=== PATIENT | male | born 1975 | race Caucasian/White ===

== ENCOUNTER 2016-10-21 14:00 | Emergency (ER) | payer SELFPAY ==
[2016-10-21 14:12] VITALS: BP 134/81
[2016-10-21] MEDS ORDERED: predniSONE TAB* 20 MG PO ONE (14:34)
--- NOTE | 2016-10-21 14:41 | UC ---
General HPI - HPI Summary HPI Summary: got his second Hep B vaccine 2d ago. Within 15 min of the vaccine, broke out in total body hives and had throat tightening. Symptoms improved over an hour, he went home. Gradually felt better, but next day he awoke with body aches particularly in the large joints, and fatigue. Now slightly improved, but was too tired to complete work day today. 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 Pain in large joints: knees, elbows, shoulders. No fever. No vomiting. No other concurrent illnesses - History of Current Complaint Chief Complaint: UCGeneralIllness Stated Complaint: POSSIBLE REACTION TO HEP B SHOT Time Seen by Provider: 10/21/16 14:06 Hx Obtained From: Patient Onset/Duration: Gradual Onset, Lasting Days - 2 Timing: Constant Onset Severity: Moderate Current Severity: Mild Associated Signs & Symptoms: Positive: Weakness Similar Episode/Dx as: no prior vaccine reactions, though mother told him he did have some sort of reaction to a vaccine when he was a baby - Allergy/Home Medications Allergies/Adverse Reactions: Allergies Allergy/AdvReac Type Severity Reaction Status Date / Time Penicillins Allergy Intermediate Hives Verified 10/21/16 14:06 Hepatitis B Virus Vaccine Allergy Hives Verified 10/21/16 14:06 PMH/Surg Hx/FS Hx/Imm Hx Previously Healthy: Yes Respiratory History Of: Denies: Asthma - Surgical History Surgical History: Yes Surgery Procedure, Year, and Place: appy. undesended testicle - Family History Known Family History: Positive: Hypertension - Social History Occupation: Employed Full-time Lives: With Family Alcohol Use: Weekly Alcohol Amount: couple beers a night Substance Use Type: None Smoking Status (MU): Former Smoker When Did the Patient Quit Smoking/Using Tobacco: 2009 Review of Systems Constitutional: Fatigue - marked today Skin: Other - hives Eyes: Negative ENT: Negative Respiratory: Negative Cardiovascular: Negative Gastrointestinal: Negative Genitourinary: Negative Motor: Negative Neurovascular: Negative Musculoskeletal: Arthralgia Neurological: Negative Psychological: Negative All Other Systems Reviewed And Are Negative: Yes Physical Exam Triage Information Reviewed: Yes Appearance: Well-Appearing, No Pain Distress, Well-Nourished, Obese Vital Signs: Initial Vital Signs Temp 99.3 F 10/21/16 14:07 Pulse 88 10/21/16 14:07 Resp 20 10/21/16 14:07 BP 134/81 10/21/16 14:07 Pulse Ox 100 10/21/16 14:07 Vital Signs Reviewed: Yes Eye Exam: Normal Eyes: Positive: Conjunctiva Clear ENT Exam: Normal Neck exam: Normal Neck: Positive: Supple Respiratory Exam: Normal Respiratory: Positive: Lungs clear Cardiovascular Exam: Normal Musculoskeletal Exam: Normal, Other - he states joints are painful to move. No redness or evident swelling Neurological Exam: Normal Neurological: Positive: Alert, Muscle Tone Normal Psychological Exam: Normal Skin Exam: Normal Course/Dx - Course Course Of Treatment: advised not to get 3rd Hep B vaccination - Differential Dx - Multi-Symptom Provider Diagnoses: adverse reaction to vaccine Discharge - Discharge Plan Condition: Stable Disposition: HOME Patient Education Materials: General Allergic Reaction (ED) Forms: *Work Release Referrals: No Primary Care Phys,NOPCP [Primary Care Provider] - Additional Instructions: Rest at home. Starting Oct, take ibuprofen 600-800 mg (3 or 4 tabs) three times a day for joint aching
== END 2016-10-21 14:49 | disposition home or self-care (01) ==
LOC: UCCORT 14:00
DX: T88.1XXA Other complications following immunization, not elsewhere classified, initial encounter (principal); L27.0 Generalized skin eruption due to drugs and medicaments taken internally; T50.Z95A Adverse effect of other vaccines and biological substances, initial encounter; Y92.9 Unspecified place or not applicable; Z88.0 Allergy status to penicillin; Z87.891 Personal history of nicotine dependence
CPT/HCPCS: 99212; G0463; J7512

== ENCOUNTER 2016-12-22 11:48 | Emergency (ER) | payer BC ==
[2016-12-22 12:00] VITALS: BP 151/81
--- NOTE | 2016-12-22 13:26 | UC ---
desmond Tyson Timothy, scribed for Jesus Cain MD on 12/22/16 at 1223 . FLU HPI - HPI Summary HPI Summary: Maikol Staton is a 41 yo male presenting to [facility] with cough, nasal congestion, and 3/10 sore throat for the past week. Pt states he was exposed to a person's vomit who had influenza b. He states he had a bad chest cold over a week ago. He denies fever. His MHx includes HTN, appendectomy. - History of Current Complaint Chief Complaint: UCRespiratory Stated Complaint: FLU SYMPTOMS Time Seen by Provider: 12/22/16 12:17 Hx Obtained From: Patient Onset/Duration: Gradual Onset, Lasting Days, Still Present Severity Currently: Moderate Severity Initially: Moderate Pain Intensity: 3 Pain Scale Used: 0-10 Numeric Associated Signs & Symptoms: Positive: Cough, Sore Throat, Nasal Congestion. Negative: Fever - Allergy/Home Medications Allergies/Adverse Reactions: Allergies Allergy/AdvReac Type Severity Reaction Status Date / Time Penicillins Allergy Intermediate Hives Verified 10/21/16 14:06 Hepatitis B Virus Vaccine Allergy Hives Verified 10/21/16 14:06 PMH/Surg Hx/FS Hx/Imm Hx Respiratory History Of: Denies: Asthma - Surgical History Surgical History: Yes Surgery Procedure, Year, and Place: appy. undesended testicle - Family History Known Family History: Positive: Hypertension, Diabetes, Other - [place] - Social History Alcohol Use: Weekly Alcohol Amount: couple beers a night Substance Use Type: None Smoking Status (MU): Former Smoker When Did the Patient Quit Smoking/Using Tobacco: 2008 Review of Systems Constitutional: Negative Skin: Negative Eyes: Negative ENT: Sore Throat, Nasal Discharge Respiratory: Cough Cardiovascular: Negative Gastrointestinal: Negative Genitourinary: Negative Motor: Negative Neurovascular: Negative Musculoskeletal: Negative Neurological: Negative Psychological: Negative All Other Systems Reviewed And Are Negative: Yes Physical Exam Triage Information Reviewed: Yes Vital Signs: Initial Vital Signs Temp 98.2 F 12/22/16 11:57 Pulse 110 12/22/16 11:57 Resp 20 12/22/16 11:57 BP 151/81 12/22/16 11:57 Pulse Ox 100 12/22/16 11:57 Vital Signs Reviewed: Yes - Additional Comments VITAL SIGNS: Reviewed. GENERAL: Patient is a well developed and nourished who is lying comfortable in the stretcher. Patient is not in any acute respiratory distress. HEAD AND FACE: Normocephalic. Nasal discharge. EYES: PERRLA, EOMI x 2. EARS: Hearing grossly intact. MOUTH: pharyngeal erythema NECK: Supple, trachea is midline, no adenopathy, no JVD, no carotid bruit. CHEST: Symmetric, no tenderness at palpation LUNGS: Clear to auscultation bilaterally. No wheezing or crackles. CVS: Regular rate and rhythm, S1 and S2 present, no murmurs or gallops appreciated. ABDOMEN: Soft, non-tender. Bowel sounds are normal. No abdominal abnormal pulsations. EXTREMITIES: FROM in all major joints, no edema, no cyanosis or clubbing. NEURO: Alert and oriented x 3. No acute neurological deficits. Speech is normal and follows commands. SKIN: Dry and warm Re-Evaluation - Re-Evaluation First Eval Re-Evaluation Time: 13:20 Change: Unchanged Comment: Pt is informed of negative results of flu and strep tests. He is agreeable to current course of Tx. Flu Course/Dx - Course Course Of Treatment: Maikol Staton is a 41 yo male presenting to [facility] with cough, nasal congestion, and 3/10 sore throat for the past week. Pt states he was exposed to a person's vomit who had influenza b. He states he had a bad chest cold over a week ago. He denies fever. His MHx includes HTN, appendectomy. Negative rapid strep test. Negative influenza A and B test. I discussed all the findings and test results with the patient. Patient was instructed to return to the emergency room immediately if any of the symptoms return or worsens. Plan of care was discussed with the patient and understands and agrees. All questions were answered at patient satisfaction. There were no further complaints or concerns. Lung exam before discharge: CTA B/L. Good air exchange. No wheezing or crackles heard. CVS: S1 and S2 present. No murmurs appreciated. Patient is alert and oriented x 3. Patient is hemodynamically stable. Patient will be discharged home with follow up information assurance in the next 2-3 days - Differential Dx/Diagnosis Differential Diagnosis/HQI/PQRI: Bronchitis, Influenza, Upper Respiratory Infection Provider Diagnoses: cough, URI Discharge - Discharge Plan Condition: Stable Disposition: HOME Prescriptions: Benzonatate CAP* [Tessalon 100 MG CAP*] 100 mg PO TID PRN #12 cap PRN Reason: Cough Patient Education Materials: Acute Cough (ED), Upper Respiratory Infection (ED) Forms: *Work Release Referrals: No Primary Care Phys,NOPCP [Primary Care Provider] - [facility] [Outside] - 2 Days Additional Instructions: Please follow up with the primary care physician provided regarding your visit to urgent care today. Return to urgent care or the emergency department with any new or recurring symptoms. The documentation as recorded by the desmond mann Timothy accurately reflects the service I personally performed and the decisions made by me, Jesus Cain MD.
== END 2016-12-22 13:31 | disposition home or self-care (01) ==
LOC: UCEAST 11:48
DX: J06.9 Acute upper respiratory infection, unspecified (principal); R05 Cough; Z88.0 Allergy status to penicillin; Z88.7 Allergy status to serum and vaccine; Z87.891 Personal history of nicotine dependence
CPT/HCPCS: 87502; 87651; 99212; G0463

== ENCOUNTER 2017-04-27 07:08 | Emergency (ER) | payer BC ==
[2017-04-27 07:29] VITALS: BP 151/76
--- NOTE | 2017-04-27 07:57 | UC ---
Dental HPI - HPI Summary HPI Summary: left lower jaw pain from dental decay. he has recently gotten dental insurance and has a list of dentists that he will go through to find one. No fevers or chills. - History of Current Complaint Chief Complaint: UCDentalProblem Stated Complaint: DENTAL Time Seen by Provider: 04/27/17 07:14 Hx Obtained From: Patient Onset/Duration: Gradual Onset Severity: Severe Aggravating: Heat, Cold, Chewing Alleviating: Nothing Related History: Previous Dental Care on Same Tooth, Swelling - Allergies/Home Medications Allergies/Adverse Reactions: Allergies Allergy/AdvReac Type Severity Reaction Status Date / Time Penicillins Allergy Intermediate Hives Verified 04/27/17 07:20 Hepatitis B Virus Vaccine Allergy Hives Verified 04/27/17 07:20 Home Medications: Home Medications Acetaminophen TAB* [Tylenol TAB*] 1,000 mg PRN 04/27/17 [History] PMH/Surg Hx/FS Hx/Imm Hx Previously Healthy: No - prior dental decay and cavities. - Surgical History Surgical History: Yes Surgery Procedure, Year, and Place: appy. undesended testicle - Family History Known Family History: Positive: Hypertension, Diabetes, Other - [place] - Social History Occupation: Employed Full-time Alcohol Use: Weekly Alcohol Amount: [id number] Substance Use Type: None Smoking Status (MU): Former Smoker When Did the Patient Quit Smoking/Using Tobacco: 2008 - Immunization History Most Recent Influenza Vaccination: NONE 2015 Most Recent Tetanus Shot: UNKNOWN Review of Systems ENT: Dental Pain All Other Systems Reviewed And Are Negative: Yes Physical Exam Triage Information Reviewed: Yes Appearance: Pain Distress, Obese Vital Signs: Initial Vital Signs Temp 98.3 F 04/27/17 07:20 Pulse 111 04/27/17 07:20 Resp 18 04/27/17 07:20 BP 151/76 04/27/17 07:20 Pulse Ox 99 04/27/17 07:20 Vital Signs Reviewed: Yes Eye Exam: Normal ENT Exam: Normal Dental: Positive: Percussion Tenderness @, Gross Decay/Caries @. Negative: Abscess @, Cellulitis @, Cervical Lymphadenopathy, Bleeding Neck exam: Normal Neck: Positive: Supple, Nontender, No Lymphadenopathy Respiratory Exam: Normal Cardiovascular Exam: Normal Abdominal Exam: Normal Musculoskeletal Exam: Normal Neurological Exam: Normal Psychological Exam: Normal Skin Exam: Normal Dental Complaint Course/Dx - Course Course Of Treatment: no signs of dental abcess but there is gross decay and carries of the left lower molars and incisors. no signs of cellulitis. 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 Discharge - Discharge Plan Condition: Good Disposition: HOME Prescriptions: Clindamycin CAP* [Cleocin 150 MG CAP*] 300 mg PO Q6H #40 cap HYDROcodone/ACETAMIN 5-325 MG* [[place] 5-325 TAB*] 1 tab PO Q6H PRN #16 tab MDD 4 PRN Reason: Pain Ibuprofen TAB* [Motrin TAB* 800 MG] 800 mg PO TID PRN #20 tab PRN Reason: Pain Additional Instructions: Please follow up with a dentist. Return for any worsening.
--- NOTE | 2017-04-27 16:38 | ED ---
Progress - Progress Note Progress Note: Oked an additional 40 capsules of clindamycin 150 mg to equal 300 mg q6h for 10 days. Course/Dx - Course Course Of Treatment: no signs of dental abcess but there is gross decay and carries of the left lower molars and incisors. no signs of cellulitis. - Diagnoses Provider Diagnoses: Dental abscess
== END 2017-04-27 08:17 | disposition home or self-care (01) ==
LOC: UCCORT 07:08
DX: K02.9 Dental caries, unspecified (principal); Z87.891 Personal history of nicotine dependence
CPT/HCPCS: 99212; G0463

== ENCOUNTER 2017-11-30 07:39 | Inpatient (IN) | payer BC ==
--- NOTE | 2017-11-30 08:29 | RAD ---
HISTORY: Chest pain COMPARISONS: March 11, 2015 VIEWS: 1: frontal portable view of the chest at 8:10 AM FINDINGS: LINES AND TUBES: None. CARDIOMEDIASTINAL SILHOUETTE: The cardiomediastinal silhouette is normal for portable technique. PLEURA: The costophrenic angles are sharp. No pleural abnormalities are noted. LUNG PARENCHYMA: The lungs are clear. ABDOMEN: The upper abdomen is clear. There is no subphrenic gas. BONES AND SOFT TISSUES: No bone or soft tissue abnormalities are noted. IMPRESSION: NO ACTIVE CARDIOPULMONARY DISEASE.
[2017-11-30] MEDS ORDERED: NS 0.9% 1000 ML* 1,000 ML IV ONE (08:50)
[2017-11-30 08:52] LABS: ABS Basophils 0.1 10^3/ul (0-0.2); ABS Eosinophils 0.8 10^3/ul (0-0.6); ABS Lymphocytes 2.4 10^3/ul (1.0-4.8); ABS Monocytes 0.6 10^3/ul (0-0.8); ABS Nucleated RBC 0 10^3/ul; Eosinophil % 5.3 % (0-6); Hematocrit 51 % (42-52); Hemoglobin 16.8 g/dl (14.0-18.0); Lymphocyte % 16.4 % (25-47); Mean Corpuscular HGB Conc 33 g/dl (31-36); Mean Corpuscular Hemoglobin 29 pg (27-31); Mean Corpuscular Volume 89 fL (80-94); Mean Platelet Volume 8 um3 (7.4-10.4); Nucleated Red Blood Cells % 0.2; Platelet Count 213 10^3/ul (150-450); Red Blood Count 5.71 10^6/ul (4.0-5.4); Red Cell Distribution Width 15 % (10.5-15); White Blood Count 14.8 10^3/ul (3.5-10.8)
[2017-11-30 09:00] LABS: INR 0.97 (0.77-1.02)
[2017-11-30] MEDS ORDERED: Iohexol 350* (CONTRAST) 500 ML MDV IV ONE (10:01)
[2017-11-30] MEDS ORDERED: Perflutren Lipid Microsphere* 3 ML VIAL ONE (10:22)
--- NOTE | 2017-11-30 10:29 | RAD ---
HISTORY: Chest pain COMPARISONS: None TECHNIQUE: Multiple contiguous axial CT scans of the chest were obtained after the administration of nonionic intravenous contrast, timed to the pulmonary arterial phase of contrast enhancement.. Coronal and sagittal multiplanar reformations are also submitted for review. FINDINGS: NECK AND THYROID: The lower neck and thyroid are unremarkable. CHEST WALL: There is no lower cervical, axillary, or supraclavicular lymphadenopathy by size criteria. HEART AND PERICARDIUM: The heart is unremarkable. AORTA AND PULMONARY VASCULATURE: There are large bilateral filling defects consistent with saddle pulmonary emboli within the main pulmonary artery and lower and segmental branches bilaterally. MEDIASTINUM: There is no mediastinal lymphadenopathy by size criteria. HUMBERTO: There is no hilar lymphadenopathy by size criteria. AIRWAY AND ESOPHAGUS: The airway is unremarkable, without endobronchial filling defect. The esophagus is grossly normal. LUNG PARENCHYMA: The lungs are clear. PLEURA: There is moderate right pleural effusion UPPER ABDOMEN: The upper abdomen is unremarkable. BONES AND SOFT TISSUES: Degenerative changes are noted OTHER: None. IMPRESSION: 1. LARGE BILATERAL PULMONARY EMBOLI. 2. RIGHT PLEURAL EFFUSION. PRELIMINARY FINDINGS WERE DISCUSSED WITH DR. BROWER IN THE EMERGENCY DEPARTMENT AT APPROXIMATELY 10:25 AM ON NOVEMBER 30, 2017.
[2017-11-30] MEDS ORDERED: Heparin DRIP 25,000 UNITS(*) 25,000 UNITS/500 ML BAG IVPB SCH ×2 (11:45→17:30)
[2017-11-30] MEDS ORDERED: Heparin VIAL(*) 5000 UNITS/ML VIAL (FIVE THOUSAND) IV SCH ×2 (12:00→18:00)
[2017-11-30] MEDS ORDERED: Acetaminophen TAB* 325 MG PO PRN (12:11)
[2017-11-30] MEDS ORDERED: Ondansetron INJ* 2 MG/ML VIAL IV PRN (12:11)
[2017-11-30] MEDS ORDERED: NS 0.9% 1000 ML* 1,000 ML IV SCH (12:15)
--- NOTE | 2017-11-30 12:23 | ECHO ---
Patient: MILAN BEDOYA [facility] Rec#: [id number] : 1975 Date: 11/30/2017 Age: 42y Height: 182.88 cm / 72.0 in Weight: 136.08 kg / 299.9 lbs Sex: M BSA: 2.53 Room#: ED 12 Admit Date#: 11/30/2017 Type: Inpatient Referring: Ghada Alvarenga MD Reading: Ghada Alvarenga MD Cancer Genetic Counselor: Bebe MartinRD,RDMS Transthoracic Echocardiogram Indication: SOB, CP BP: 101/66 HR: 116 Rhythm: Tachycardia Findings History: Smoker. On CT large bilateral pulmonary emboli. Technical Comments: The study is technically limited due to patient body habitus. Left Ventricle: The left ventricular chamber size is normal. Mild concentric left ventricular hypertrophy is observed. Global left ventricular wall motion and contractility are within normal limits. The left ventricle appears hyperdynamic. The estimated ejection fraction is 60-65%. There is septal flattening of the interventricular septum consistent with right ventricular volume or pressure overload. There is an E to A reversal in the mitral valve flow pattern suggestive of diastolic dysfunction. Left Atrium: The left atrium is slightly dilated. Right Ventricle: The right ventricle is mildly dilated. The right ventricular global systolic function is severely reduced. Right Atrium: The right atrium is mildly dilated. Aortic Valve: There is no evidence of aortic valve thickening. Systolic excursion of the aortic valve is normal. There is no evidence of aortic regurgitation. There is no evidence of aortic stenosis. Mitral Valve: The mitral valve leaflets do not appear thickened. There is no evidence of mitral regurgitation. There is no evidence of mitral stenosis. Tricuspid Valve: The tricuspid valve leaflets are normal. There is trace tricuspid regurgitation. Unable to estimate the right ventricular systolic pressure. Pulmonic Valve: There is no evidence of pulmonic valve thickening. There is no evidence of pulmonic regurgitation. Pericardium: A trivial pericardial effusion is visualized. Aorta: The aortic root appears normal. There is no dilatation of the aortic arch. Pulmonary Artery: The main pulmonary artery appears normal. Venous: The inferior vena cava is dilated. There is no change in the dimension of the inferior vena cava with respiration consistent with markedly increased right atrial pressure. Contrast: Definity was used to optimize study. A total of 10 ml was given by ED RN (Macario). Patient tolerated well. Conclusions Mild concentric left ventricular hypertrophy is observed. Normal to hyperdynamic LV systolic function with normal wall motion. The estimated ejection fraction is 60-65%. There is septal flattening of the interventricular septum consistent with right ventricular volume or pressure overload. There is an E to A reversal in the mitral valve flow pattern suggestive of diastolic dysfunction. The right ventricular global systolic function is severely reduced and RV dilatation is noted. All valves appear stucturally normal with normal function. There is trace tricuspid regurgitation. Unable to estimate the right ventricular systolic pressure. No prior echo to compare. Measurements Name Value Normal Range RVIDd (AP) 2D 3.9 cm (0.9 - 2.6) RVDdMajor (2D) 4.1 cm (2.2 - 4.4) RAd ISD 4CH 5.3 cm (3.4 - 4.9) RA (A4C)W 3.6 cm (2.9 - 4.6) IVSd (2D) 1.2 cm (0.6 - 1) LVPWd (2D) 1.4 cm (0.6 - 1) LVIDd (2D) 4.5 cm (3.6 - 5.4) LVIDs (2D) 3 cm - LV FS (2D) 32 % (25 - 45) Aortic Annulus 2.2 cm (1.4 - 2.6) Ao root diameter (2D) 3.4 cm (2.1 - 3.5) Ascending Ao 3.1 cm (2.1 - 3.4) Aortic arch 3.3 cm (1.8 - 3.4) LA dimension (AP) 2D 3.5 cm (2.3 - 3.8) LAd ISD 4CH 5.5 cm (2.9 - 5.3) LA ISD 4CH W 3.8 cm (2.5 - 4.5) Name Value Normal Range LA ESV SP 4CH (A/L) 54.31 ml - LA ESV SP 4CH (MOD) 48.72 ml - Name Value Normal Range MV E-wave Vmax 0.4 m/sec - MV deceleration time 50 msec - MV A-wave Vmax 0.6 m/sec - MV E:A ratio 0.7 ratio - LV lateral e' Vmax 0.08 m/sec - LV E:e' lateral ratio 5 ratio - Name Value Normal Range AV Vmax 1 m/sec - AV peak gradient 4 mmHg - LVOT Vmax 0.7 m/sec - LVOT peak gradient 2 mmHg - Name Value Normal Range RAP 8 mmHg - IVC diameter 2.2 cm - Name Value Normal Range PV Vmax 0.6 m/sec - PV peak gradient 1.4 mmHg -
[2017-11-30 13:36] LABS: EGFR Non-African American 78.7 (>60)
[2017-11-30] MEDS ORDERED: Alteplase* 100 MG in PREMIX* 100 ML IVPB ONE (14:30)
[2017-11-30] MEDS ORDERED: Alteplase* 100 MG VIAL ONE (14:31)
--- NOTE | 2017-11-30 14:43 | PN ---
Progress Note - Progress Note Date of Service: 11/30/17 Note: CRITICAL CARE ATTENDING: This patient is a 42 y/o obese male with no significant past medical history, who was admitted this afternoon because of multiple pulmonary emboli associated with right heart strain (by transthoracic echocardiogram). The latter finding is considered by many (including myself) to be an indication for thrombolytic therapy. Since patient has no contraindications to lytic therapy, I have explained the benefits and risks of lytic Rx to the patient and his sister (who is a nurse), and they have agreed to the Rx. Will therefore administer alteplase , 100 mg over 2 hours. Patient is on a heparin drip, which will be held while the alteplase is infused.
[2017-11-30 15:08] LABS: ABS Basophils 0.1 10^3/ul (0-0.2); ABS Eosinophils 0.4 10^3/ul (0-0.6); ABS Lymphocytes 2.7 10^3/ul (1.0-4.8); ABS Monocytes 0.9 10^3/ul (0-0.8); ABS Neutrophils 9.5 10^3/ul (1.5-7.7); ABS Nucleated RBC 0 10^3/ul; Eosinophil % 2.8 % (0-6); Hematocrit 48 % (42-52); Hemoglobin 15.9 g/dl (14.0-18.0); Lymphocyte % 19.8 % (25-47); Mean Corpuscular HGB Conc 33 g/dl (31-36); Mean Corpuscular Hemoglobin 30 pg (27-31); Mean Corpuscular Volume 89 fL (80-94); Mean Platelet Volume 8 um3 (7.4-10.4); Nucleated Red Blood Cells % 0; Platelet Count 226 10^3/ul (150-450); Red Blood Count 5.39 10^6/ul (4.0-5.4); Red Cell Distribution Width 15 % (10.5-15); White Blood Count 13.7 10^3/ul (3.5-10.8)
[2017-11-30 15:50] LABS: EGFR Non-African American 81.4 (>60)
[2017-11-30 16:05] LABS: INR 1.08 (0.77-1.02)
[2017-11-30] MEDS: Heparin DRIP 25,000 UNITS(*) 25,000 UNITS/500 ML BAG IVPB SCH (17:31)
--- NOTE | 2017-11-30 18:21 | ED ---
Christian Tyson Jennifer, scribed for Jose Molina MD on 11/30/17 at 0908 . HPI Chest Pain - HPI Summary HPI Summary: The patient is a 42 year old male who was brought into the ED for chest pressure and shortness of breath this morning. Pt explains two nights ago he got shortness of breath, which went away the next day. This morning, he bent down to feed his cats and began breathing heavily. He called 911 but fainted before ambulance arrived. He came to as his mother called 911 again. Pt was given Aspirin and NTG in the ambulance, and now reports only a little bit of pressure in the ED now. Pt reports exertion, movement, and walking aggravate the pain. He also adds that he had bronchitis one month ago and has had a persistent cough since. - History of Current Complaint Chief Complaint: EDChestPainROMI Time Seen by Provider: 11/30/17 07:56 Hx Obtained From: Patient Onset/Duration: Started Minutes Ago - This morning, Still Present - Better in ED Timing: Intermittent Initial Severity: Moderate Current Severity: Mild Pain Intensity: 0 Pain Scale Used: 0-10 Numeric Chest Pain Location: Diffuse, Mid Sternal Chest Pain Radiates: No Character: Pressure/Squeezing Aggravating Factor(s): Exertion, Movement - Walking Alleviating Factor(s): Rest Associated Signs and Symptoms: Positive: Other: - Shortness of breath, syncope, cough - Allergy/Home Medications Allergies/Adverse Reactions: Allergies Allergy/AdvReac Type Severity Reaction Status Date / Time hepatitis B virus vaccine Allergy Hives Verified 11/30/17 07:57 Penicillins Allergy Hives Verified 11/30/17 07:57 Home Medications: Home Medications NK [No Home Medications Reported] 11/30/17 [History Confirmed 11/30/17] PMH/Surg Hx/FS Hx/Imm Hx Endocrine/Hematology History: Denies: Hx Diabetes Cardiovascular History: Denies: Hx Hypertension Respiratory History: Denies: Hx Asthma Sensory History: Denies: Hx Legally Blind EENT History: Denies: Hx Deafness - Surgical History Surgery Procedure, Year, and Place: appy. undesended testicle Infectious Disease History: No Infectious Disease History: Denies: Traveled Outside the [place] in Last 30 Days - Family History Known Family History: Positive: Cardiac Disease - Father, Hypertension, Diabetes , Other - Father of brain CA; Aortic Aneurysm - paternal aunt and uncle - Social History Alcohol Use: None Alcohol Amount: couple beers a night Substance Use Type: Reports: None Smoking Status (MU): Former Smoker Review of Systems Positive: Chest Pain Positive: Shortness Of Breath, Cough All Other Systems Reviewed And Are Negative: Yes Physical Exam - Summary Physical Exam Summary: Appearance: The patient is morbidly obese in no acute distress and in no acute pain. Skin: The skin is warm and dry and skin color reflects adequate perfusion. HEENT: ~The head is normocephalic and atraumatic. The pupils are equal and reactive. The conjunctivae are clear and without drainage. ~Nares are patent and without drainage. ~Mouth reveals moist mucous membranes and the throat is without erythema and exudate. ~The external ears are intact. The ear canals are patent and without drainage. The tympanic membranes are intact. Neck: the neck is supple with full range of motion and non-tender. There are no carotid bruits. ~There is no neck vein distension. Respiratory: Chest is non-tender. ~Lungs are clear to auscultation and breath sounds are symmetrical and equal. Cardiovascular: Heart is tachycardic and regular rhythm. ~There is no murmur or rub auscultated. ~~There is no peripheral edema and pulses are symmetrical and equal. Abdomen: The abdomen is soft and non-tender. ~There are normal bowel sounds heard in all four quadrants and there is no organomegaly palpated. Musculoskeletal: There is no back tenderness noted. ~Extremities are non-tender with full range of motion. ~There is good capillary refill. ~There is no peripheral edema or calf tenderness elicited. Neurological: Patient is alert and oriented to person, place and time. ~The patient has symmetrical motor strength in all four extremities. ~Cranial nerves are grossly intact. Deep tendon reflexes are symmetrical and equal in all four extremities. Psychiatric: The patient has an appropriate affect and does not exhibit any anxiety or depression. Triage Information Reviewed: Yes Vital Signs On Initial Exam: Initial Vitals Temp Pulse Resp BP Pulse Ox 98.7 F 116 22 110/64 98 11/30/17 07:44 11/30/17 07:44 11/30/17 07:44 11/30/17 07:44 11/30/17 07:44 Vital Signs Reviewed: Yes Diagnostics - Vital Signs Vital Signs Temp Pulse Resp BP Pulse Ox 11/30/17 08:36 117 19 113/82 99 11/30/17 08:00 121 20 119/73 98 11/30/17 07:55 116 15 98 11/30/17 07:54 133/69 11/30/17 07:44 98.7 F 116 22 110/64 98 - Laboratory Lab Results: Lab Results 11/30/17 Range/Units 08:33 WBC 14.8 H (3.5-10.8) 10^3/ul RBC 5.71 H (4.0-5.4) 10^6/ul Hgb 16.8 (14.0-18.0) g/dl Hct 51 (42-52) % MCV 89 (80-94) fL MCH 29 (27-31) pg MCHC 33 (31-36) g/dl RDW 15 (10.5-15) % Plt Count 213 (150-450) 10^3/ul MPV 8 (7.4-10.4) um3 Neut % (Auto) 74.0 (38-83) % Lymph % (Auto) 16.4 L (25-47) % [place] % (Auto) 3.8 (0-7) % Eos % (Auto) 5.3 (0-6) % Baso % (Auto) 0.5 (0-2) % Absolute Neuts (auto) 11.0 H (1.5-7.7) 10^3/ul Absolute Lymphs (auto) 2.4 (1.0-4.8) 10^3/ul Absolute Monos (auto) 0.6 (0-0.8) 10^3/ul Absolute Eos (auto) 0.8 H (0-0.6) 10^3/ul Absolute Basos (auto) 0.1 (0-0.2) 10^3/ul Absolute Nucleated RBC 0 10^3/ul Nucleated RBC % 0.2 Result Diagrams: 11/30/17 15:00 11/30/17 15:00 Lab Statement: Any lab studies that have been ordered have been reviewed, and results considered in the medical decision making process. - Radiology CXR Xray Interpretation: No Acute Changes - NO ACTIVE CARDIOPULMONARY DISEASE. Dr. Molina has reviewed this report. Radiology Interpretation Completed By: Radiologist - CT Chest/Thorax CTA CT Interpretation: Positive (See Comments) - 1. LARGE BILATERAL PULMONARY EMBOLI. 2. RIGHT PLEURAL EFFUSION. Dr. Molina has reviewed this report. CT Interpretation Completed By: Radiologist - EKG 07:44 Cardiac Rate: Tachycardia EKG Rhythm: Sinus Tachycardia - 115 BPM EKG Interpretation: Deep inverted T waves septally, mild ST depressions anteriorly Chest Pain Course/Dx - Course Course Of Treatment: Mr. Staton presented with CP and SOB and was clearly tachypneic and tachycardic but relatively asymptomatic at rest on O2. His initial ECG showed ischemic changes septally and anteriorly. His intial trop was 0.36 and his d-dimer greater than 1 thousand. CTA showed bilateral saddle emboli and he is getting an echo and admitted to the ICU for consideration of thrombolitics. - Diagnoses Provider Diagnoses: Pulmonary embolism - Provider Notifications Discussed Care Of Patient With: Ghada Alvarenga Time Discussed With Above Provider: 09:45 Instructed by Provider To: Other - Discussed pt care with Dr. Alvarenga, cardiology. Also, discussed pt care with Dr. Denney, hospitalist, at 10:38. - Critical Care Time Critical Care Time: 30-74 min Discharge - Discharge Plan Condition: Good Disposition: ADMITTED TO [facility] documentation as recorded by the Christian mann Jennifer accurately reflects the service I personally performed and the decisions made by , Jose Molina MD.
--- NOTE | 2017-11-30 20:41 | RAD ---
INDICATION: Pain and swelling. COMPARISON: None TECHNIQUE: Duplex interrogation of the both lower extremities was performed. FINDINGS: Deep veins: The common femoral, great saphenous, profunda femoris, proximal, mid, and distal deep femoral, popliteal, posterior tibial, and peroneal veins are interrogated. The tibial veins are not well evaluated due to body habitus and therefore tibial deep venous thrombosis cannot be excluded. There is no evidence of [id number] deep venous thrombosis and the remaining vessels demonstrate normal compressibility, augmentation, and phasic flow. Superficial veins: There are no findings of superficial thrombophlebitis. Popliteal fossa:There is no evidence of a popliteal cyst. Soft tissues:There are no soft tissue abnormalities. IMPRESSION: LIMITED EXAMINATION TIBIAL VESSELS. NO EVIDENCE OF DEEP VENOUS THROMBOSIS ABOVE THE KNEE.
--- NOTE | 2017-11-30 20:50 | HP ---
ADMISSION HISTORY AND PHYSICAL: DATE OF ADMISSION: 11/30/17 PRIMARY CARE PROVIDER: None. MY ATTENDING WHILE IN THE HOSPITAL: Dr. Nara Denney.* (DICTATED BY DANA CHRISTIANSON) CHIEF COMPLAINT: Shortness of breath and chest pressure x2 days. HISTORY OF PRESENT ILLNESS: Mr. Staton is a 42-year-old male, who does not routinely seek medical care and has a past medical history significant only for intermittent hypertension for which he takes no medication, who presents with 2 days of shortness of breath and chest pressure. The patient states that a couple of nights ago suddenly when he was leaning over to change the cat litter box, he had shortness of breath to the point that he was not able to catch his breath for after taking a few steps. The patient states that he normally has no real restrictions on his exercise tolerance. Denies progressive dyspnea on exertion, increased swelling of his legs, fatigue, or other abnormalities. The patient states that he had bronchitis at the end of last year and still has intermittently productive cough from that, so he attributed this to that. However, the patient states that he felt tired yesterday with shortness of breath, but was able to function. The patient then states today that he was leaning down to pick something up the floor and felt as if he was going to pass out and got extremely short of breath. The patient was able to make it to the other room to call 911. The patient states that with this episode, he had some chest tightness, like the muscles in his chest were spasming, but no stabbing, no discrete chest pain. The patient was able to call 911, got up to unlock the door for the patternator. He was able to walk there and several steps back before he blacked out and woke up on the floor. The patient was then brought to the hospital. The patient denies any recent changes in his routine diet or any long trips. 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 The patient states that he has chronic swelling in his left leg with some darkening of the skin for which he previously went to Urgent Care and they said that he did not have a blood clot in his leg and that it was equally swollen to the other side. The patient denies any episodes like this. The patient denies any other symptoms such as fever, chills, nausea, vomiting. The patient states that his father while he had brain cancer had a blood clot and had a hypercoagulable workup drawn, which showed that he had heritable thrombophilia, but is unknown what type it is. The patient's sister who is present also states that she had a provoked DVT in her left arm after a clavicle fracture that she also had a hypercoagulable workup drawn that the results are unknown for. The patient also had an aunt, who had a DVT and of unknown complications from that, presumably of PE. The patient had CTA while in the emergency department, which showed bilateral large pulmonary emboli, and so we were asked to evaluate for admission. PAST MEDICAL HISTORY: Hypertension, on no medication; dental abscesses. PAST SURGICAL HISTORY: Appendectomy, orchiopexy as a child. MEDICATIONS: None. ALLERGIES: PENICILLIN, anaphylactic. FAMILY HISTORY: The patient's father had brain tumor, pulmonary embolism, and IN. The patient's mother has diabetes, but is otherwise alive and well. The patient's aunt of PE. The patient's grandfather and great grandfather on his mother's side also had diabetes. The patient's sister had a provoked blood clot. The patient's father had an unknown type of thrombophilia. SOCIAL HISTORY: The patient previously smoked from 1993 to 1998, quit until 2001 and then smoked from 2001 to 2007 approximately pack a day. The patient used to have an issue with alcoholism, but is now just drinks occasionally. The patient denies any history of illicit drugs. 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 The patient is and has no children. REVIEW OF SYSTEMS: A 14-point review of systems was reviewed and is negative except as above. PHYSICAL EXAMINATION GENERAL: The patient is a 42-year-old morbidly obese male, who is sitting in the bed, in no acute distress. HEENT: Head normocephalic, atraumatic. Sclerae anicteric. No conjunctival injection. Nasal mucosa is moist. Oral mucosa moist. No pharyngeal erythema, discharge, or exudate. NECK: Supple, nontender. No lymphadenopathy. No carotid bruits auscultated. RESPIRATORY: Clear to auscultation bilaterally. No wheezes, rales, or rhonchi. Good air exchange bilaterally. CARDIAC: Tachycardic. No clicks, murmurs, gallops, or rubs. Pulses 2+ in the bilateral radial, dorsalis pedis, and posterior tibialis areas. The patient has 1+ edema in the right lower extremity and 2+ pitting edema in the left lower extremity with 2 discrete areas of warmth with chronic venous stasis changes. There is no tenderness to palpation in either calf. No palpable cords. ABDOMEN: Obese, soft, nontender, and nondistended. Bowel sounds present and normoactive in all 4 quadrants. No hepatosplenomegaly. No abdominal bruits auscultated. GENITOURINARY: No suprapubic tenderness or CVA tenderness. NEURO: Cranial nerves II through XII intact. No focal deficits. PSYCHIATRIC: Very pleasant and cooperative. SKIN: Clean, dry, and intact. Venous stasis ulcers on the left medial aspect of the left calf as above. No other ulcers. DIAGNOSTIC STUDIES/LAB DATA: White blood cell count 14.8, red blood cell count 5.71, hemoglobin 16.8, hematocrit 51, and platelet count 213. INR 0.97, D -dimer greater than 1050. Sodium 135, potassium 4.2, chloride 103, carbon dioxide 22, anion gap 10, BUN 16, creatinine 1.11, glucose 175, lactic acid 2.4 , calcium 9.4. Total bilirubin 0.8, AST 81, ALT 74, alkaline phosphatase 73. Troponin I initially 0.36, repeat 0.69. BNP 165. Total protein 7.4, albumin 3.9, globulin 3.5. Albumin/globulin ratio 1.1. TSH 4.01. Electrocardiogram shows sinus tachycardia; normal axis; T-wave inversions across the lateral leads with ST-segment depression in V4, V5, V6; T waves, S1Q3T3 is present. No other abnormalities. Chest x-ray read as no active cardiopulmonary disease. Chest thorax CTA read as bilateral pulmonary emboli, right pleural effusion. Transthoracic echocardiogram read as mild concentric left ventricular hypertrophy, [id number] left ventricular systolic function with normal wall motion. The estimated ejection fraction 60% to 65% with septal flattening of the interventricular septum consistent with right ventricular volume or pressure overload. There is E to A reversal in the mitral valve flow pattern suggestive of diastolic dysfunction, right ventricular global systolic function severely reduced, and right ventricular dilatation is noted. All valves are structurally normal with normal function. There is trace tricuspid regurgitation, unable to estimate the right ventricular systolic pressure. No prior echo to compare. ASSESSMENT AND PLAN: Impression: The patient is a 42-year-old male with past medical history significant only for hypertension, who presents with 2 days of shortness of breath and chest tightness, who was found to have large bilateral pulmonary emboli. The patient was admitted to the ICU on a heparin drip with the consideration of tPA. 1. Bilateral pulmonary emboli, unprovoked. The patient has large pulmonary emboli on exam. The patient's transthoracic echocardiogram shows decreased right ventricular systolic function. The patient is on 5 L of oxygen at this time. The patient is tachycardic, but blood pressure is within normal limits. Given the patient's transthoracic echocardiogram results, this is a relative indication for tPA and pulmonary embolism. We will discuss this with our rum processing operator and give tPA at his discretion. The patient will be started on heparin drip and have a hypercoagulable workup drawn. The patient will have ultrasound of his lower extremities to assess for blood clots. The patient will be started on fluids at 75 mL an hour. 2. Elevated troponin. This likely represents demand ischemia from the pulmonary embolism and not acute myocardial infarction. We will trend troponins to peak. We will draw hemoglobin A1c and lipid profile for cardiac risk stratification. Repeat EKG in the morning and based on the results of these, would possibly recommend an outpatient stress test on discretion of the patient's primary care provider. 3. Hypertension. The patient is normotensive at this time though this may be due to pulmonary embolism as the patient states that he is generally somewhat hypertensive. The patient will monitor and consider treatment at discharge. 4. FEN. The patient will have heart healthy diet without caffeine and fluids at 75 mL an hour as above. 5. DVT prophylaxis. The patient will begin heparin drip. DISPOSITION: The patient will be admitted inpatient to the ICU. ESTIMATED LENGTH OF STAY: Greater than 2 midnights. The patient would like his surrogate decision maker to be his sister, Norma Moreno. TIME SPENT: Approximately 1 hour was spent on this admission, 30 of which was spent [id number] with the patient obtaining history and physical and discussing the treatment plan. This plan has been discussed with my attending, Dr. Nara Denney, and she is in agreement. DANA CHRISTIANSON [id number]/[facility] #: [id number] TEE
[2017-12-01] MEDS ORDERED: Artificial Tears* 15 ML BTL BOTH EYES PRN (02:05)
[2017-12-01 05:59] LABS: ABS Basophils 0.2 10^3/ul (0-0.2); ABS Eosinophils 1.3 10^3/ul (0-0.6); ABS Lymphocytes 3.1 10^3/ul (1.0-4.8); ABS Monocytes 0.8 10^3/ul (0-0.8); ABS Neutrophils 6.4 10^3/ul (1.5-7.7); ABS Nucleated RBC 0 10^3/ul; Eosinophil % 11.1 % (0-6); Hematocrit 43 % (42-52); Hemoglobin 14.4 g/dl (14.0-18.0); Lymphocyte % 26.4 % (25-47); Mean Corpuscular HGB Conc 34 g/dl (31-36); Mean Corpuscular Hemoglobin 30 pg (27-31); Mean Corpuscular Volume 88 fL (80-94); Mean Platelet Volume 8 um3 (7.4-10.4); Nucleated Red Blood Cells % 0; Platelet Count 182 10^3/ul (150-450); Red Blood Count 4.83 10^6/ul (4.0-5.4); Red Cell Distribution Width 14 % (10.5-15); White Blood Count 11.8 10^3/ul (3.5-10.8)
[2017-12-01 06:30] LABS: EGFR Non-African American 91.8 (>60)
--- NOTE | 2017-12-01 09:39 | PN ---
Subjective Date of Service: 12/01/17 Interval History: Pt is feeling much better this AM. He denies any SOB. No chest pain. He has not been out of bed. Objective Active Medications: Acetaminophen (Tylenol Tab*) 650 mg PO Q6H PRN PRN Reason: FEVER/PAIN Heparin Sodium (Porcine) (Heparin Vial(*)) 0 units IV .PER PROTOCOL CORDELIA PRN Reason: Protocol Heparin Sodium/Dextrose (Heparin Drip 25,000 Units(*)) 25,000 units in 500 mls @ 0 mls/hr IVPB PER RATE CORDELIA; Per Protocol PRN Reason: Protocol Last Admin: 11/30/17 17:31 Dose: 20 mls/hr Ondansetron HCl (Zofran Inj*) 4 mg IV Q6H PRN PRN Reason: NAUSEA Polyvinyl Alcohol (Polyvinyl Alcohol 1.4% Opth*) 1 drop BOTH EYES Q2H PRN PRN Reason: DRY EYES Vital Signs - 8 hr 12/01/17 12/01/17 12/01/17 02:00 02:05 03:00 Temperature Pulse Rate 91 86 Respiratory 20 21 18 Rate Blood Pressure 132/98 145/91 (mmHg) O2 Sat by Pulse 93 97 Oximetry 12/01/17 12/01/17 12/01/17 04:00 05:00 06:00 Temperature 98.4 F Pulse Rate 82 81 80 Respiratory 18 21 16 Rate Blood Pressure 134/98 143/105 135/93 (mmHg) O2 Sat by Pulse 97 97 94 Oximetry 12/01/17 12/01/17 12/01/17 07:00 07:32 08:00 Temperature 98.1 F Pulse Rate 81 79 Respiratory 22 20 Rate Blood Pressure 126/98 135/96 (mmHg) O2 Sat by Pulse 95 91 Oximetry Oxygen Devices in Use Now: Nasal Cannula Appearance: Middle aged morbidly obese male seen sitting up in bed, NAD Eyes: No Scleral Icterus Ears/Nose/Mouth/Throat: Mucous Membranes Moist Respiratory: Symmetrical Chest Expansion and Respiratory Effort, Clear to Auscultation Cardiovascular: NL Sounds; No Murmurs; No JVD, RRR, No Edema Abdominal: NL Sounds; No Tenderness; No Distention Extremities: No Clubbing, Cyanosis Skin: No Nodules or Sclerosis Neurological: Alert and Oriented x 3 Result Diagrams: 12/01/17 05:28 12/01/17 05:28 Additional Lab and Data: Lab Results 11/30/17 Range/Units 08:33 WBC 14.8 H (3.5-10.8) 10^3/ul RBC 5.71 H (4.0-5.4) 10^6/ul Hgb 16.8 (14.0-18.0) g/dl Hct 51 (42-52) % MCV 89 (80-94) fL MCH 29 (27-31) pg MCHC 33 (31-36) g/dl RDW 15 (10.5-15) % Plt Count 213 (150-450) 10^3/ul MPV 8 (7.4-10.4) um3 Neut % (Auto) 74.0 (38-83) % Lymph % (Auto) 16.4 L (25-47) % [place] % (Auto) 3.8 (0-7) % Eos % (Auto) 5.3 (0-6) % Baso % (Auto) 0.5 (0-2) % Absolute Neuts (auto) 11.0 H (1.5-7.7) 10^3/ul Absolute Lymphs (auto) 2.4 (1.0-4.8) 10^3/ul Absolute Monos (auto) 0.6 (0-0.8) 10^3/ul Absolute Eos (auto) 0.8 H (0-0.6) 10^3/ul Absolute Basos (auto) 0.1 (0-0.2) 10^3/ul Absolute Nucleated RBC 0 10^3/ul Nucleated RBC % 0.2 Assess/Plan/Problems-Billing Mr Staton is a 42 yo M who has a h/o morbid obesity and HTN who presented to the ER with c/o severe SOB and CP and was found to have massive bilateral PEs with RV dysfunction. - Patient Problems (1) Bilateral pulmonary embolism Current Visit: Yes Status: Acute Code(s): I26.99 - OTHER PULMONARY EMBOLISM WITHOUT ACUTE COR PULMONALE SNOMED Code(s): 54964136 Comment: The patient received tPA yesterday and symptomatically feels much better. Will continue the heparin drip. Given his weight he should be maintained on coumadin for at least 1 month then could be converted to eliquis or xarelto. He likely will need lifelong anticoagulation given the severity of his PE. Will ask for hematology consult. Hypercoagulable panel was sent however most will not be useful in the setting of acute clot. Repeat echo in near future. (2) HTN (hypertension) Current Visit: Yes Status: Acute Code(s): I10 - ESSENTIAL (PRIMARY) HYPERTENSION SNOMED Code(s): 56594638 Comment: BP has been moderately elevated. He will likely need to be started on an antihypertensive but will wait until tomorrow. (3) DVT prophylaxis Current Visit: Yes Status: Acute Code(s): STA8135 - SNOMED Code(s): 672562699 Comment: heparin drip, bridge to coumadin (4) Full code status Current Visit: Yes Status: Acute Code(s): Z78.9 - OTHER SPECIFIED HEALTH STATUS SNOMED Code(s): 282594077
--- NOTE | 2017-12-01 11:52 | CONSULT ---
Consultation - Reason for Consultation Reason for Consultation: massive PE Ordering Provider: Marysol Edmond Chief Complaint: SOB and syncope History of Present Illness: 42 yo morbidly obese M w PMH of untreated HTN presenting with a massive PE requiring TPA. Maikol reports ~2-3 days of increasing SOB. On the day of admission he leaned over to pick something up and got extremely SOB and thought he would pass out. He activated 911 and then after unlocking the door for them syncopized. He woke up on the floor next to his mother. He was brought in to the ER where he was noted to be hypoxic and tachycardic. CTA confirmed bilateral large pulmonary emboli. Echocardiogram showed evidence of right heart strain and he had mildly positive troponins and so he underwent TPA in the ICU. He is currently normoxemic with markedly improved symptoms and is on a heparin drip. He does have chronic stasis changes of his LLE with a negative doppler. He has a strongly paternal family history of blood clots, though his father had a GBM at the time and his sister had pancreatic cancer. His other sister had an upper extremity DVT in the setting of a trauma and his paternal aunt had a blood clot. Apparently someone tested positive for an inherited hypercoag state, but they are not sure of this result. He denies any recent travel or immobilization. He denies active tobacco use. Allergies/Medications Medication: Home Medications Medication Instructions Recorded Confirmed Type NK [No Home Medications Reported] 11/30/17 11/30/17 History Allergies/Adverse Reactions: Allergies Allergy/AdvReac Type Severity Reaction Status Date / Time hepatitis B virus vaccine Allergy Hives Verified 11/30/17 07:57 Penicillins Allergy Hives Verified 11/30/17 07:57 History - Past Medical History Other History: obesity. untreated HTN. appendectomy. orhioplexy as child - Family History Other Family History: father: GBM and PE. sister: pancreatic cancer and DVT. sister: clavical fracture and DVT in that arm. 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 mild SOB. +chronic left leg swelling and discomfort. otherwise fully negative 14 pt ROS Physical Exam - Physical Exam Physical Examination: Vital Signs Temp Pulse Resp BP Pulse Ox 98.1 F 86 19 156/95 95 12/01/17 07:32 12/01/17 11:00 12/01/17 11:00 12/01/17 11:00 12/01/17 11:00 morbidly obese M in NAD perr eomi op moist CTA bl s1 s2 nl obese NT +bs chronic stasis changes left leg, slightly larger than right A+O x 3, grossly nonfocal large ecchymoses right flank and right posterior upper arm Results - Lab Results Lab Results: 11/30/17 11/30/17 11/30/17 15:00 15:00 15:00 WBC 13.7 H RBC 5.39 Hgb 15.9 Hct 48 MCV 89 MCH 30 MCHC 33 RDW 15 Plt Count 226 MPV 8 Neut % (Auto) 69.8 Lymph % (Auto) 19.8 L [place] % (Auto) 6.6 Eos % (Auto) 2.8 Baso % (Auto) 1.0 Absolute Neuts (auto) 9.5 H Absolute Lymphs (auto) 2.7 Absolute Monos (auto) 0.9 H Absolute Eos (auto) 0.4 Absolute Basos (auto) 0.1 Absolute Nucleated RBC 0 Nucleated RBC % 0 INR (Anticoag Therapy) 1.08 H APTT 107.8 H* Sodium Potassium Chloride Carbon Dioxide Anion Gap BUN Creatinine Est GFR ( Amer) Est GFR (Non-Af Amer) BUN/Creatinine Ratio Glucose Lactic Acid Calcium Magnesium Total Bilirubin AST ALT Alkaline Phosphatase Troponin I 0.64 H* Total Protein Albumin Globulin Albumin/Globulin Ratio 11/30/17 11/30/17 11/30/17 15:00 20:45 23:05 WBC RBC Hgb Hct MCV MCH MCHC RDW Plt Count MPV Neut % (Auto) Lymph % (Auto) [place] % (Auto) Eos % (Auto) Baso % (Auto) Absolute Neuts (auto) Absolute Lymphs (auto) Absolute Monos (auto) Absolute Eos (auto) Absolute Basos (auto) Absolute Nucleated RBC Nucleated RBC % INR (Anticoag Therapy) APTT 42.0 H Sodium Potassium Chloride Carbon Dioxide Anion Gap BUN Creatinine 1.01 Est GFR ( Amer) 104.7 Est GFR (Non-Af Amer) 81.4 BUN/Creatinine Ratio Glucose Lactic Acid 1.1 Calcium Magnesium Total Bilirubin AST ALT Alkaline Phosphatase Troponin I Total Protein Albumin Globulin Albumin/Globulin Ratio 12/01/17 12/01/17 12/01/17 05:28 05:28 05:28 WBC 11.8 H RBC 4.83 Hgb 14.4 Hct 43 MCV 88 MCH 30 MCHC 34 RDW 14 Plt Count 182 MPV 8 Neut % (Auto) 53.9 Lymph % (Auto) 26.4 [place] % (Auto) 6.6 Eos % (Auto) 11.1 H Baso % (Auto) 2.0 Absolute Neuts (auto) 6.4 Absolute Lymphs (auto) 3.1 Absolute Monos (auto) 0.8 Absolute Eos (auto) 1.3 H Absolute Basos (auto) 0.2 Absolute Nucleated RBC 0 Nucleated RBC % 0 INR (Anticoag Therapy) APTT 102.3 H* Sodium 135 Potassium 3.7 Chloride 106 Carbon Dioxide 24 Anion Gap 5 BUN 14 Creatinine 0.91 Est GFR ( Amer) 118.1 Est GFR (Non-Af Amer) 91.8 BUN/Creatinine Ratio 15.4 Glucose 118 H Lactic Acid Calcium 8.3 L Magnesium 1.9 Total Bilirubin 0.90 AST 33 ALT 45 Alkaline Phosphatase 48 Troponin I Total Protein 6.0 L Albumin 3.2 Globulin 2.8 Albumin/Globulin Ratio 1.1 Assessment and Plan Impression: 42 yo morbidly obese M w massive unprovoked PE complicated by syncope and need for TPA. Given the severity of this unprovoked clot I would recommend life long anticoagulation. In the short terms I would recommend a heparin drip with coumadin, continuing the heparin until therapeutic on the coumadin for at least 2-3 days. We could discuss in the future switching to an oral agent, though these are not indicated in the acute setting with massive PEs. In terms of his hypercoag work up, it is very possible that he has an inherited coagulopathy given his family history, however I would not advocate for testing this in the acute, anticoagulated state. Factor V leiden and prothrombin gene mutation studies are reliable currently but it will not acutely price changer. I would like to see him in the outpatient setting at which time we can discuss testing and when to change to other agents if needed. I did encourage him to find a primary care provider as well. We discussed avoidance of tobacco use and weight loss as well.
[2017-12-01] MEDS: Heparin DRIP 25,000 UNITS(*) 25,000 UNITS/500 ML BAG IVPB SCH ×2 (18:14→23:28)
[2017-12-02 06:14] LABS: Hematocrit 44 % (42-52); Hemoglobin 14.6 g/dl (14.0-18.0); Mean Corpuscular HGB Conc 33 g/dl (31-36); Mean Corpuscular Hemoglobin 30 pg (27-31); Mean Corpuscular Volume 89 fL (80-94); Mean Platelet Volume 8 um3 (7.4-10.4); Platelet Count 177 10^3/ul (150-450); Red Blood Count 4.92 10^6/ul (4.0-5.4); Red Cell Distribution Width 14 % (10.5-15); White Blood Count 10.7 10^3/ul (3.5-10.8)
[2017-12-02] MEDS: Heparin VIAL(*) 5000 UNITS/ML VIAL (FIVE THOUSAND) IV SCH ×3 (07:24→20:01)
--- NOTE | 2017-12-02 08:10 | PN ---
Subjective Date of Service: 12/02/17 Interval History: Pt is feeling well. He has been up to the bathroom with mild SOB but nothing significant like prior to his hospitalization. He denies any pain. He has been coughing up a minimal amount of sputum. Objective Active Medications: Acetaminophen (Tylenol Tab*) 650 mg PO Q6H PRN PRN Reason: FEVER/PAIN Heparin Sodium (Porcine) (Heparin Vial(*)) 0 units IV .PER PROTOCOL [facility] PRN Reason: Protocol Last Admin: 12/02/17 07:24 Dose: 3,000 units Heparin Sodium/Dextrose (Heparin Drip 25,000 Units(*)) 25,000 units in 500 mls @ 0 mls/hr IVPB PER RATE [facility]; Per Protocol PRN Reason: Protocol Last Admin: 12/01/17 23:28 Dose: 6 mls/hr Ondansetron HCl (Zofran Inj*) 4 mg IV Q6H PRN PRN Reason: NAUSEA Polyvinyl Alcohol (Polyvinyl Alcohol 1.4% Opth*) 1 drop BOTH EYES Q2H PRN PRN Reason: DRY EYES Vital Signs - 8 hr 12/02/17 12/02/17 03:30 07:42 Temperature 98.3 F 97.9 F Pulse Rate 79 76 Respiratory 16 18 Rate Blood Pressure 147/90 147/88 (mmHg) O2 Sat by Pulse 97 97 Oximetry Oxygen Devices in Use Now: None Appearance: Morbidly obese middle aged male sitting up in bed, NAD Eyes: No Scleral Icterus Ears/Nose/Mouth/Throat: Mucous Membranes Moist Respiratory: Symmetrical Chest Expansion and Respiratory Effort, Clear to Auscultation Cardiovascular: NL Sounds; No Murmurs; No JVD, RRR, No Edema, - - chronic venous stasis changes to LE Abdominal: NL Sounds; No Tenderness; No Distention Extremities: No Clubbing, Cyanosis Skin: No Rash or Ulcers, No Nodules or Sclerosis Neurological: Alert and Oriented x 3 Result Diagrams: 12/02/17 05:51 12/01/17 05:28 Additional Lab and Data: Lab Results 11/30/17 Range/Units 08:33 WBC 14.8 H (3.5-10.8) 10^3/ul RBC 5.71 H (4.0-5.4) 10^6/ul Hgb 16.8 (14.0-18.0) g/dl Hct 51 (42-52) % MCV 89 (80-94) fL MCH 29 (27-31) pg MCHC 33 (31-36) g/dl RDW 15 (10.5-15) % Plt Count 213 (150-450) 10^3/ul MPV 8 (7.4-10.4) um3 Neut % (Auto) 74.0 (38-83) % Lymph % (Auto) 16.4 L (25-47) % [place] % (Auto) 3.8 (0-7) % Eos % (Auto) 5.3 (0-6) % Baso % (Auto) 0.5 (0-2) % Absolute Neuts (auto) 11.0 H (1.5-7.7) 10^3/ul Absolute Lymphs (auto) 2.4 (1.0-4.8) 10^3/ul Absolute Monos (auto) 0.6 (0-0.8) 10^3/ul Absolute Eos (auto) 0.8 H (0-0.6) 10^3/ul Absolute Basos (auto) 0.1 (0-0.2) 10^3/ul Absolute Nucleated RBC 0 10^3/ul Nucleated RBC % 0.2 Assess/Plan/Problems-Billing Mr Staton is a 42 yo M who has a h/o morbid obesity and HTN who presented to the ER with c/o severe SOB and CP and was found to have massive bilateral PEs with RV dysfunction. - Patient Problems (1) Bilateral pulmonary embolism Current Visit: Yes Status: Acute Code(s): I26.99 - OTHER PULMONARY EMBOLISM WITHOUT ACUTE COR PULMONALE SNOMED Code(s): 66541178 Comment: He is s/p tPA with good results. The patient will continue on the heparin drip with bridging to coumadin. Appreciate hematology consultation. He understands he needs to be in the hospital for as long as it takes for him to become therapeutic on the coumadin and have overlap of 48hr of a therapeutic INR and heparin drip. In the future he can be converted to NOAC if he wants. Will get pt PCP to follow with and he will need outpatient hematology evaluation. (2) HTN (hypertension) Current Visit: Yes Status: Acute Code(s): I10 - ESSENTIAL (PRIMARY) HYPERTENSION SNOMED Code(s): 32567521 Comment: BP remains moderately elevated. Will start amlodipine 5mg daily. (3) DVT prophylaxis Current Visit: Yes Status: Acute Code(s): CFY1148 - SNOMED Code(s): 938961075 Comment: heparin drip, bridge to coumadin (4) Full code status Current Visit: Yes Status: Acute Code(s): Z78.9 - OTHER SPECIFIED HEALTH STATUS SNOMED Code(s): 813528983
[2017-12-02] MEDS: amLODIPine TAB* 5 MG PO SCH (09:30)
[2017-12-02] MEDS: Warfarin TAB(*) 5 MG PO SCH (16:49)
[2017-12-02] MEDS ORDERED: Triamcinolone 0.5% OINT * 15 GM TUBE TOPICAL PRN (21:25)
[2017-12-03] MEDS: amLODIPine TAB* 5 MG PO SCH (08:27)
[2017-12-03] MEDS ORDERED: Heparin DRIP 25,000 UNITS(*) 25,000 UNITS/500 ML BAG IVPB SCH ×3 (08:45→09:20)
[2017-12-03] MEDS ORDERED: Heparin VIAL(*) 5000 UNITS/ML VIAL (FIVE THOUSAND) IV SCH (09:00)
[2017-12-03 09:29] LABS: INR 0.97 (0.77-1.02)
[2017-12-03] MEDS: Heparin VIAL(*) 5000 UNITS/ML VIAL (FIVE THOUSAND) IV SCH ×3 (09:44→22:00)
[2017-12-03] MEDS ORDERED: Polyethylene Glycol 3350* 17 GM PACKET PO PRN (14:43)
[2017-12-03] MEDS: Heparin DRIP 25,000 UNITS(*) 25,000 UNITS/500 ML BAG IVPB SCH (15:12)
[2017-12-03] MEDS: Warfarin TAB(*) 5 MG PO SCH (18:01)
--- NOTE | 2017-12-03 18:32 | PN ---
Subjective Date of Service: 12/03/17 Interval History: ptt has been subtherapeutic. he has no complaints today, just feels anxious. no shortness of breath any more but has only walked to the bathroom. no chest pain, headache, melena, or hematochezia. Family History: Unchanged from Admission Social History: Unchanged from Admission Past Medical History: Unchanged from Admission Objective Active Medications: Acetaminophen (Tylenol Tab*) 650 mg PO Q6H PRN PRN Reason: FEVER/PAIN Last Admin: 12/02/17 17:15 Dose: 650 mg Amlodipine Besylate (Norvasc Tab*) 5 mg PO DAILY [facility] Last Admin: 12/03/17 08:27 Dose: 5 mg Heparin Sodium (Porcine) (Heparin Vial(*)) 0 units IV .PER PROTOCOL [facility] PRN Reason: Protocol Last Admin: 12/03/17 14:15 Dose: 3,000 units Heparin Sodium/Dextrose (Heparin Drip 25,000 Units(*)) 25,000 units in 500 mls @ 20 mls/hr IVPB PER RATE [facility] PRN Reason: Protocol Last Admin: 12/03/17 15:12 Dose: 20 mls/hr Ondansetron HCl (Zofran Inj*) 4 mg IV Q6H PRN PRN Reason: NAUSEA Polyethylene Glycol/Electrolytes (Miralax*) 17 gm PO DAILY PRN PRN Reason: CONSTIPATION Polyvinyl Alcohol (Polyvinyl Alcohol 1.4% Opth*) 1 drop BOTH EYES Q2H PRN PRN Reason: DRY EYES Triamcinolone Acetonide (Triamcinolone 0.5% Oint *) 1 applic TOPICAL BID PRN PRN Reason: RASH Warfarin Sodium (Coumadin Tab(*)) 5 mg PO DAILY@1700 [facility] PRN Reason: Protocol Last Admin: 12/03/17 18:01 Dose: 5 mg Vital Signs - 8 hr 12/03/17 11:31 Temperature 98.1 F Pulse Rate 75 Respiratory 16 Rate Blood Pressure 129/90 (mmHg) O2 Sat by Pulse 98 Oximetry Oxygen Devices in Use Now: None Appearance: obese, well appearing, comfortable Eyes: No Scleral Icterus Ears/Nose/Mouth/Throat: NL Teeth, Lips, Gums Neck: NL Appearance and Movements; NL JVP Respiratory: Symmetrical Chest Expansion and Respiratory Effort, Clear to Auscultation Cardiovascular: NL Sounds; No Murmurs; No JVD, RRR Abdominal: NL Sounds; No Tenderness; No Distention Lymphatic: No Cervical Adenopathy Extremities: - - LLE chronic hyperpigmented patches Skin: - - echymosis on right back chest wall and right posterior shoulder Neurological: Alert and Oriented x 3 Result Diagrams: 12/02/17 05:51 12/01/17 05:28 Additional Lab and Data: Lab Results 11/30/17 Range/Units 08:33 WBC 14.8 H (3.5-10.8) 10^3/ul RBC 5.71 H (4.0-5.4) 10^6/ul Hgb 16.8 (14.0-18.0) g/dl Hct 51 (42-52) % MCV 89 (80-94) fL MCH 29 (27-31) pg MCHC 33 (31-36) g/dl RDW 15 (10.5-15) % Plt Count 213 (150-450) 10^3/ul MPV 8 (7.4-10.4) um3 Neut % (Auto) 74.0 (38-83) % Lymph % (Auto) 16.4 L (25-47) % [place] % (Auto) 3.8 (0-7) % Eos % (Auto) 5.3 (0-6) % Baso % (Auto) 0.5 (0-2) % Absolute Neuts (auto) 11.0 H (1.5-7.7) 10^3/ul Absolute Lymphs (auto) 2.4 (1.0-4.8) 10^3/ul Absolute Monos (auto) 0.6 (0-0.8) 10^3/ul Absolute Eos (auto) 0.8 H (0-0.6) 10^3/ul Absolute Basos (auto) 0.1 (0-0.2) 10^3/ul Absolute Nucleated RBC 0 10^3/ul Nucleated RBC % 0.2 Assess/Plan/Problems-Billing Mr Staton is a 42 yo M who has a h/o morbid obesity and HTN who presented to the ER with c/o severe SOB and CP and was found to have massive bilateral PEs with RV dysfunction. - Patient Problems (1) Bilateral pulmonary embolism Current Visit: Yes Status: Acute Code(s): I26.99 - OTHER PULMONARY EMBOLISM WITHOUT ACUTE COR PULMONALE SNOMED Code(s): 18660957 Comment: He is s/p tPA, with no O2 requirement. Hemodynamically stable since tpa. Evaluated by hematology; likely needs a hypercoagulable work up (thinks he has a family history of factor V leiden deficiency), but this will be postponed since he is on AC now. Heme recommended warfarin/heparin overlap, so will continue until warfarin therapeutic x 48 hours. ptt has been difficult to get therapeutic, so rate was increased today. day 2 of warfarin (2) Hematoma Current Visit: Yes Status: Acute Code(s): T14.8XXA - OTHER INJURY OF UNSPECIFIED BODY REGION, INITIAL ENCOUNTER SNOMED Code(s): 600467167 Comment: monitor CBC for hematomas on right side from syncope (3) HTN (hypertension) Current Visit: Yes Status: Acute Code(s): I10 - ESSENTIAL (PRIMARY) HYPERTENSION SNOMED Code(s): 59002489 Comment: BP acceptable; amlodipine started this admission (4) Syncope and collapse Current Visit: Yes Status: Acute Code(s): R55 - SYNCOPE AND COLLAPSE SNOMED Code(s): 831626715 Comment: likely due to PE; no events on tele
[2017-12-04 06:06] LABS: ABS Basophils 0.1 10^3/ul (0-0.2); ABS Eosinophils 0.9 10^3/ul (0-0.6); ABS Lymphocytes 3.4 10^3/ul (1.0-4.8); ABS Monocytes 0.8 10^3/ul (0-0.8); ABS Neutrophils 5.6 10^3/ul (1.5-7.7); ABS Nucleated RBC 0 10^3/ul; Eosinophil % 8.3 % (0-6); Hematocrit 46 % (42-52); Hemoglobin 15.4 g/dl (14.0-18.0); Lymphocyte % 31.5 % (25-47); Mean Corpuscular HGB Conc 34 g/dl (31-36); Mean Corpuscular Hemoglobin 30 pg (27-31); Mean Corpuscular Volume 88 fL (80-94); Mean Platelet Volume 8 um3 (7.4-10.4); Nucleated Red Blood Cells % 0.1; Platelet Count 218 10^3/ul (150-450); Red Blood Count 5.19 10^6/ul (4.0-5.4); Red Cell Distribution Width 14 % (10.5-15); White Blood Count 10.8 10^3/ul (3.5-10.8)
[2017-12-04 06:22] LABS: INR 1.07 (0.77-1.02)
[2017-12-04] MEDS: Heparin DRIP 25,000 UNITS(*) 25,000 UNITS/500 ML BAG IVPB SCH ×2 (06:28→20:04)
[2017-12-04] MEDS: amLODIPine TAB* 5 MG PO SCH (08:13)
--- NOTE | 2017-12-04 14:46 | PN ---
Subjective Date of Service: 12/04/17 Interval History: no overnight events, no complaints and feels good today. walked the hallways and had no shortness of breath, lightheadedness or dizziness, chest pain. his mother and sister are at the bedside now. Family History: Unchanged from Admission Social History: Unchanged from Admission Past Medical History: Unchanged from Admission Objective Active Medications: Acetaminophen (Tylenol Tab*) 650 mg PO Q6H PRN PRN Reason: FEVER/PAIN Last Admin: 12/02/17 17:15 Dose: 650 mg Amlodipine Besylate (Norvasc Tab*) 5 mg PO DAILY [facility] Last Admin: 12/04/17 08:13 Dose: 5 mg Heparin Sodium (Porcine) (Heparin Vial(*)) 0 units IV .PER PROTOCOL [facility] PRN Reason: Protocol Last Admin: 12/03/17 22:00 Dose: 3,000 units Heparin Sodium/Dextrose (Heparin Drip 25,000 Units(*)) 25,000 units in 500 mls @ 20 mls/hr IVPB PER RATE [facility] PRN Reason: Protocol Last Admin: 12/04/17 06:28 Dose: 38 mls/hr Ondansetron HCl (Zofran Inj*) 4 mg IV Q6H PRN PRN Reason: NAUSEA Polyethylene Glycol/Electrolytes (Miralax*) 17 gm PO DAILY PRN PRN Reason: CONSTIPATION Polyvinyl Alcohol (Polyvinyl Alcohol 1.4% Opth*) 1 drop BOTH EYES Q2H PRN PRN Reason: DRY EYES Triamcinolone Acetonide (Triamcinolone 0.5% Oint *) 1 applic TOPICAL BID PRN PRN Reason: RASH Warfarin Sodium (Coumadin Tab(*)) 5 mg PO DAILY@1700 [facility] PRN Reason: Protocol Last Admin: 12/03/17 18:01 Dose: 5 mg Vital Signs - 8 hr 12/04/17 12/04/17 12/04/17 07:34 08:00 11:19 Temperature 97.9 F 98.1 F Pulse Rate 68 84 Respiratory 16 16 17 Rate Blood Pressure 134/74 135/74 (mmHg) O2 Sat by Pulse 98 100 Oximetry Oxygen Devices in Use Now: None Appearance: alert, resting in bed in no distress Eyes: No Scleral Icterus Ears/Nose/Mouth/Throat: NL Teeth, Lips, Gums Neck: NL Appearance and Movements; NL JVP Respiratory: Symmetrical Chest Expansion and Respiratory Effort, Clear to Auscultation Cardiovascular: NL Sounds; No Murmurs; No JVD, RRR Abdominal: NL Sounds; No Tenderness; No Distention Lymphatic: No Cervical Adenopathy Skin: - - echymoses on right side of back and posterior right arm, extending beyond markings Neurological: Alert and Oriented x 3 Result Diagrams: 12/04/17 05:44 12/04/17 05:44 Additional Lab and Data: Lab Results 11/30/17 Range/Units 08:33 WBC 14.8 H (3.5-10.8) 10^3/ul RBC 5.71 H (4.0-5.4) 10^6/ul Hgb 16.8 (14.0-18.0) g/dl Hct 51 (42-52) % MCV 89 (80-94) fL MCH 29 (27-31) pg MCHC 33 (31-36) g/dl RDW 15 (10.5-15) % Plt Count 213 (150-450) 10^3/ul MPV 8 (7.4-10.4) um3 Neut % (Auto) 74.0 (38-83) % Lymph % (Auto) 16.4 L (25-47) % [place] % (Auto) 3.8 (0-7) % Eos % (Auto) 5.3 (0-6) % Baso % (Auto) 0.5 (0-2) % Absolute Neuts (auto) 11.0 H (1.5-7.7) 10^3/ul Absolute Lymphs (auto) 2.4 (1.0-4.8) 10^3/ul Absolute Monos (auto) 0.6 (0-0.8) 10^3/ul Absolute Eos (auto) 0.8 H (0-0.6) 10^3/ul Absolute Basos (auto) 0.1 (0-0.2) 10^3/ul Absolute Nucleated RBC 0 10^3/ul Nucleated RBC % 0.2 Assess/Plan/Problems-Billing Mr Staton is a 42 yo M who has a h/o morbid obesity and HTN who presented to the ER with c/o severe SOB and CP and was found to have massive bilateral PEs with RV dysfunction. - Patient Problems (1) Bilateral pulmonary embolism Current Visit: Yes Status: Acute Code(s): I26.99 - OTHER PULMONARY EMBOLISM WITHOUT ACUTE COR PULMONALE SNOMED Code(s): 73653828 Comment: He is s/p tPA, with no O2 requirement and remains hemodynamically stable since tpa. Evaluated by hematology; likely needs a hypercoagulable work up (thinks he has a family history of factor V leiden deficiency), but this will be postponed since he is on AC now. Heme recommended warfarin/heparin overlap, so will continue heparin until INR therapeutic x 48 hours. day 3 of warfarin--> if INR does not rise tomorrow, his dose should be increased (2) Hematoma Current Visit: Yes Status: Acute Code(s): T14.8XXA - OTHER INJURY OF UNSPECIFIED BODY REGION, INITIAL ENCOUNTER SNOMED Code(s): 285170302 Comment: on right posterior arm and thorax due to syncope CBC stable (3) HTN (hypertension) Current Visit: Yes Status: Acute Code(s): I10 - ESSENTIAL (PRIMARY) HYPERTENSION SNOMED Code(s): 61999336 Comment: BP acceptable; amlodipine started this admission (4) Syncope and collapse Current Visit: Yes Status: Acute Code(s): R55 - SYNCOPE AND COLLAPSE SNOMED Code(s): 821714925 Comment: likely due to PE; no events on tele
[2017-12-04] MEDS: Warfarin TAB(*) 5 MG PO SCH (17:20)
[2017-12-05 06:20] LABS: ABS Basophils 0.1 10^3/ul (0-0.2); ABS Eosinophils 0.9 10^3/ul (0-0.6); ABS Lymphocytes 3.3 10^3/ul (1.0-4.8); ABS Monocytes 0.8 10^3/ul (0-0.8); ABS Neutrophils 5.3 10^3/ul (1.5-7.7); ABS Nucleated RBC 0 10^3/ul; Eosinophil % 8.9 % (0-6); Hematocrit 46 % (42-52); Hemoglobin 15.3 g/dl (14.0-18.0); Lymphocyte % 31.5 % (25-47); Mean Corpuscular HGB Conc 33 g/dl (31-36); Mean Corpuscular Hemoglobin 30 pg (27-31); Mean Corpuscular Volume 89 fL (80-94); Mean Platelet Volume 8 um3 (7.4-10.4); Nucleated Red Blood Cells % 0; Platelet Count 242 10^3/ul (150-450); Red Blood Count 5.16 10^6/ul (4.0-5.4); Red Cell Distribution Width 14 % (10.5-15); White Blood Count 10.4 10^3/ul (3.5-10.8)
[2017-12-05 07:01] LABS: INR 1.28 (0.77-1.02)
[2017-12-05] MEDS: amLODIPine TAB* 5 MG PO SCH (10:16)
[2017-12-05] MEDS: Heparin DRIP 25,000 UNITS(*) 25,000 UNITS/500 ML BAG IVPB SCH ×2 (10:17→23:36)
--- NOTE | 2017-12-05 12:24 | PN ---
Subjective Interval History: breathing well. no chest pain. not SOB, on RA no complaints. wants off telemetry. NSR Family History: Unchanged from Admission Social History: Unchanged from Admission Past Medical History: Unchanged from Admission Objective Active Medications: Acetaminophen (Tylenol Tab*) 650 mg PO Q6H PRN PRN Reason: FEVER/PAIN Last Admin: 12/02/17 17:15 Dose: 650 mg Amlodipine Besylate (Norvasc Tab*) 5 mg PO DAILY [facility] Last Admin: 12/05/17 10:16 Dose: 5 mg Heparin Sodium (Porcine) (Heparin Vial(*)) 0 units IV .PER PROTOCOL [facility] PRN Reason: Protocol Last Admin: 12/03/17 22:00 Dose: 3,000 units Heparin Sodium/Dextrose (Heparin Drip 25,000 Units(*)) 25,000 units in 500 mls @ 20 mls/hr IVPB PER RATE [facility] PRN Reason: Protocol Last Admin: 12/05/17 10:17 Dose: 38 mls/hr Ondansetron HCl (Zofran Inj*) 4 mg IV Q6H PRN PRN Reason: NAUSEA Polyethylene Glycol/Electrolytes (Miralax*) 17 gm PO DAILY PRN PRN Reason: CONSTIPATION Polyvinyl Alcohol (Polyvinyl Alcohol 1.4% Opth*) 1 drop BOTH EYES Q2H PRN PRN Reason: DRY EYES Triamcinolone Acetonide (Triamcinolone 0.5% Oint *) 1 applic TOPICAL BID PRN PRN Reason: RASH Warfarin Sodium (Coumadin Tab(*)) 5 mg PO DAILY@1700 [facility] PRN Reason: Protocol Last Admin: 12/04/17 17:20 Dose: 5 mg Vital Signs - 8 hr 12/05/17 12/05/17 12/05/17 08:12 11:03 11:25 Temperature 97.6 F 98.0 F Pulse Rate 78 75 Respiratory 16 18 16 Rate Blood Pressure 137/83 134/73 (mmHg) O2 Sat by Pulse 98 99 Oximetry Oxygen Devices in Use Now: None Appearance: NAD, Eyes: No Scleral Icterus, PERRLA Ears/Nose/Mouth/Throat: NL Teeth, Lips, Gums, Mucous Membranes Moist Neck: NL Appearance and Movements; NL JVP Respiratory: Symmetrical Chest Expansion and Respiratory Effort, Clear to Auscultation Cardiovascular: NL Sounds; No Murmurs; No JVD, RRR Abdominal: NL Sounds; No Tenderness; No Distention, No Hepatosplenomegaly Extremities: No Edema, No Clubbing, Cyanosis Skin: - - ecchymosis right flank, left UE Neurological: Alert and Oriented x 3, NL Sensation, NL Muscle Strength and Tone Nutrition: Taking PO's Result Diagrams: 12/05/17 06:04 12/05/17 06:04 Additional Lab and Data: Laboratory Results - last 24 hr 12/05/17 12/05/17 12/05/17 06:04 06:04 06:04 WBC 10.4 RBC 5.16 Hgb 15.3 Hct 46 MCV 89 MCH 30 MCHC 33 RDW 14 Plt Count 242 MPV 8 Neut % (Auto) 51.0 Lymph % (Auto) 31.5 [place] % (Auto) 7.4 H Eos % (Auto) 8.9 H Baso % (Auto) 1.2 Absolute Neuts (auto) 5.3 Absolute Lymphs (auto) 3.3 Absolute Monos (auto) 0.8 Absolute Eos (auto) 0.9 H Absolute Basos (auto) 0.1 Absolute Nucleated RBC 0 Nucleated RBC % 0 INR (Anticoag Therapy) 1.28 H APTT BUN 13 12/05/17 12:08 WBC RBC Hgb Hct MCV MCH MCHC RDW Plt Count MPV Neut % (Auto) Lymph % (Auto) [place] % (Auto) Eos % (Auto) Baso % (Auto) Absolute Neuts (auto) Absolute Lymphs (auto) Absolute Monos (auto) Absolute Eos (auto) Absolute Basos (auto) Absolute Nucleated RBC Nucleated RBC % INR (Anticoag Therapy) APTT 59.6 H BUN Assess/Plan/Problems-Billing Mr Staton is a 42 yo M who has a h/o morbid obesity and HTN who presented to the ER with c/o severe SOB and CP and was found to have massive bilateral PEs with RV dysfunction. s/p lytics. on hepatin gtt (overlap 48 hours) bridging to coumadin - Patient Problems (1) Bilateral pulmonary embolism Current Visit: Yes Status: Acute Code(s): I26.99 - OTHER PULMONARY EMBOLISM WITHOUT ACUTE COR PULMONALE SNOMED Code(s): 77039083 Comment: He is s/p tPA, with no O2 requirement and remains hemodynamically stable since tpa. Evaluated by hematology; likely needs a hypercoagulable work up (thinks he has a family history of factor V leiden deficiency), but this will be postponed since he is on AC now. Heme recommended warfarin/heparin overlap, so will continue heparin until INR therapeutic x 48 hours. this day 4 of warfarin [5,5,5] -> increase to 6mg daily. INR 1.28 from 1.07 from 0.97. (2) DVT prophylaxis Current Visit: Yes Status: Acute Code(s): IDY4702 - SNOMED Code(s): 151808830 Comment: heparin drip, bridge to coumadin (3) Full code status Current Visit: Yes Status: Acute Code(s): Z78.9 - OTHER SPECIFIED HEALTH STATUS SNOMED Code(s): 458560198 (4) HTN (hypertension) Current Visit: Yes Status: Acute Code(s): I10 - ESSENTIAL (PRIMARY) HYPERTENSION SNOMED Code(s): 92595866 Comment: BP acceptable; amlodipine started this admission (5) Hematoma Current Visit: Yes Status: Acute Code(s): T14.8XXA - OTHER INJURY OF UNSPECIFIED BODY REGION, INITIAL ENCOUNTER SNOMED Code(s): 953019904 Comment: on right posterior arm and thorax due to syncope CBC stable (6) Syncope and collapse Current Visit: Yes Status: Acute Code(s): R55 - SYNCOPE AND COLLAPSE SNOMED Code(s): 251748678 Comment: likely due to PE; no events on tele(will d/c) Status and Disposition: medicine inpatient. Likely d/c 12/09
[2017-12-05] MEDS: Warfarin TAB(*) 6 MG PO SCH (16:40)
[2017-12-06 06:24] LABS: ABS Basophils 0.1 10^3/ul (0-0.2); ABS Eosinophils 0.7 10^3/ul (0-0.6); ABS Lymphocytes 2.7 10^3/ul (1.0-4.8); ABS Monocytes 0.7 10^3/ul (0-0.8); ABS Nucleated RBC 0 10^3/ul; Eosinophil % 7.8 % (0-6); Hematocrit 47 % (42-52); Hemoglobin 15.3 g/dl (14.0-18.0); INR 1.77 (0.77-1.02); Lymphocyte % 29.2 % (25-47); Mean Corpuscular HGB Conc 33 g/dl (31-36); Mean Corpuscular Hemoglobin 29 pg (27-31); Mean Corpuscular Volume 89 fL (80-94); Mean Platelet Volume 8 um3 (7.4-10.4); Nucleated Red Blood Cells % 0.1; Platelet Count 236 10^3/ul (150-450); Red Blood Count 5.22 10^6/ul (4.0-5.4); Red Cell Distribution Width 14 % (10.5-15); White Blood Count 9.1 10^3/ul (3.5-10.8)
[2017-12-06] MEDS: amLODIPine TAB* 5 MG PO SCH (09:03)
[2017-12-06] MEDS: Heparin DRIP 25,000 UNITS(*) 25,000 UNITS/500 ML BAG IVPB SCH (14:16)
--- NOTE | 2017-12-06 16:49 | PN ---
Subjective Date of Service: 12/06/17 Interval History: no overnight events. has been walking the hallways feeling good. no shortness of breath, chest pain, nausea, lightheadedness, syncope. Family History: Unchanged from Admission Social History: Unchanged from Admission Past Medical History: Unchanged from Admission Objective Active Medications: Acetaminophen (Tylenol Tab*) 650 mg PO Q6H PRN PRN Reason: FEVER/PAIN Last Admin: 12/02/17 17:15 Dose: 650 mg Amlodipine Besylate (Norvasc Tab*) 5 mg PO DAILY [facility] Last Admin: 12/06/17 09:03 Dose: 5 mg Heparin Sodium (Porcine) (Heparin Vial(*)) 0 units IV .PER PROTOCOL [facility] PRN Reason: Protocol Last Admin: 12/03/17 22:00 Dose: 3,000 units Heparin Sodium/Dextrose (Heparin Drip 25,000 Units(*)) 25,000 units in 500 mls @ 20 mls/hr IVPB PER RATE [facility] PRN Reason: Protocol Last Admin: 12/06/17 14:16 Dose: 20 mls/hr Ondansetron HCl (Zofran Inj*) 4 mg IV Q6H PRN PRN Reason: NAUSEA Polyethylene Glycol/Electrolytes (Miralax*) 17 gm PO DAILY PRN PRN Reason: CONSTIPATION Polyvinyl Alcohol (Polyvinyl Alcohol 1.4% Opth*) 1 drop BOTH EYES Q2H PRN PRN Reason: DRY EYES Triamcinolone Acetonide (Triamcinolone 0.5% Oint *) 1 applic TOPICAL BID PRN PRN Reason: RASH Warfarin Sodium (Coumadin Tab(*)) 6 mg PO DAILY@1700 [facility] PRN Reason: Protocol Last Admin: 12/05/17 16:40 Dose: 6 mg Vital Signs - 8 hr 12/06/17 12/06/17 11:19 15:34 Temperature 98.1 F 97.6 F Pulse Rate 73 76 Respiratory 18 16 Rate Blood Pressure 117/73 135/66 (mmHg) O2 Sat by Pulse 98 98 Oximetry Oxygen Devices in Use Now: None Appearance: no distress, well appearing Eyes: No Scleral Icterus Ears/Nose/Mouth/Throat: NL Teeth, Lips, Gums Neck: NL Appearance and Movements; NL JVP Respiratory: Symmetrical Chest Expansion and Respiratory Effort, Clear to Auscultation Cardiovascular: NL Sounds; No Murmurs; No JVD, RRR Abdominal: NL Sounds; No Tenderness; No Distention, No Hepatosplenomegaly Lymphatic: No Cervical Adenopathy Extremities: - - extensive echymosis left shoulder to MCPs Skin: - - 6cm x 4cm echymosis right back, 4cm x 4cm echymosis right posterior arm; extending beyond markings Neurological: Alert and Oriented x 3 Result Diagrams: 12/06/17 05:44 12/06/17 05:45 Additional Lab and Data: Laboratory Results - last 24 hr 12/05/17 12/05/17 12/05/17 06:04 06:04 06:04 WBC 10.4 RBC 5.16 Hgb 15.3 Hct 46 MCV 89 MCH 30 MCHC 33 RDW 14 Plt Count 242 MPV 8 Neut % (Auto) 51.0 Lymph % (Auto) 31.5 Cannon % (Auto) 7.4 H Eos % (Auto) 8.9 H Baso % (Auto) 1.2 Absolute Neuts (auto) 5.3 Absolute Lymphs (auto) 3.3 Absolute Monos (auto) 0.8 Absolute Eos (auto) 0.9 H Absolute Basos (auto) 0.1 Absolute Nucleated RBC 0 Nucleated RBC % 0 INR (Anticoag Therapy) 1.28 H APTT BUN 13 12/05/17 12:08 WBC RBC Hgb Hct MCV MCH MCHC RDW Plt Count MPV Neut % (Auto) Lymph % (Auto) Cannon % (Auto) Eos % (Auto) Baso % (Auto) Absolute Neuts (auto) Absolute Lymphs (auto) Absolute Monos (auto) Absolute Eos (auto) Absolute Basos (auto) Absolute Nucleated RBC Nucleated RBC % INR (Anticoag Therapy) APTT 59.6 H BUN Assess/Plan/Problems-Billing Mr Staton is a 42 yo M who has a h/o morbid obesity and HTN who presented to the ER with c/o severe SOB and CP and was found to have massive bilateral PEs with RV dysfunction. s/p lytics. on hepatin gtt (overlap 48 hours) bridging to coumadin - Patient Problems (1) Bilateral pulmonary embolism Current Visit: Yes Status: Acute Code(s): I26.99 - OTHER PULMONARY EMBOLISM WITHOUT ACUTE COR PULMONALE SNOMED Code(s): 12929971 Comment: Unprovoked. He is s/p tPA, with no O2 requirement and remains hemodynamically stable since tpa. Evaluated by hematology; likely needs a hypercoagulable work up (he thinks he has a family history of factor V leiden deficiency), but this will be postponed since he is on AC now. Heme recommended warfarin/heparin overlap, so will continue heparin until INR therapeutic x 48 hours. this day 5 of warfarin [5,5,5,6,6] - INR 1.77 from 1.28 from 1.07 from 0.97. (2) Hematoma Current Visit: Yes Status: Acute Code(s): T14.8XXA - OTHER INJURY OF UNSPECIFIED BODY REGION, INITIAL ENCOUNTER SNOMED Code(s): 720857718 Comment: on right posterior arm and thorax due to syncope CBC stable (3) HTN (hypertension) Current Visit: Yes Status: Acute Code(s): I10 - ESSENTIAL (PRIMARY) HYPERTENSION SNOMED Code(s): 63529210 Comment: BP acceptable; amlodipine started this admission (4) Syncope and collapse Current Visit: Yes Status: Acute Code(s): R55 - SYNCOPE AND COLLAPSE SNOMED Code(s): 573116438 Comment: likely due to PE; no events on tele(will d/c) Status and Disposition: medicine inpatient.
[2017-12-06 16:50] LABS: INR 1.87 (0.77-1.02)
[2017-12-06] MEDS: Warfarin TAB(*) 6 MG PO SCH (17:27)
[2017-12-07 06:33] LABS: ABS Basophils 0.1 10^3/ul (0-0.2); ABS Eosinophils 0.6 10^3/ul (0-0.6); ABS Lymphocytes 3.6 10^3/ul (1.0-4.8); ABS Monocytes 0.8 10^3/ul (0-0.8); ABS Neutrophils 4.5 10^3/ul (1.5-7.7); ABS Nucleated RBC 0 10^3/ul; Eosinophil % 6.3 % (0-6); Hematocrit 46 % (42-52); Hemoglobin 15.5 g/dl (14.0-18.0); Lymphocyte % 37.9 % (25-47); Mean Corpuscular HGB Conc 34 g/dl (31-36); Mean Corpuscular Hemoglobin 30 pg (27-31); Mean Corpuscular Volume 88 fL (80-94); Mean Platelet Volume 8 um3 (7.4-10.4); Nucleated Red Blood Cells % 0.2; Platelet Count 288 10^3/ul (150-450); Red Blood Count 5.26 10^6/ul (4.0-5.4); Red Cell Distribution Width 14 % (10.5-15); White Blood Count 9.6 10^3/ul (3.5-10.8)
[2017-12-07 06:44] LABS: INR 2.07 (0.77-1.02)
[2017-12-07] MEDS: Heparin VIAL(*) 5000 UNITS/ML VIAL (FIVE THOUSAND) IV SCH (06:52)
[2017-12-07] MEDS: Heparin DRIP 25,000 UNITS(*) 25,000 UNITS/500 ML BAG IVPB SCH ×2 (06:52→22:51)
--- NOTE | 2017-12-07 08:45 | PN ---
Subjective Date of Service: 12/07/17 Interval History: Mr. Lassiter denies complaint. He has been up ambulating in the hallways without chest pain or dyspnea. Family History: Unchanged from Admission Social History: Unchanged from Admission Past Medical History: Unchanged from Admission Objective Active Medications: Acetaminophen (Tylenol Tab*) 650 mg PO Q6H PRN Amlodipine Besylate (Norvasc Tab*) 5 mg PO DAILY [facility] Heparin Sodium (Porcine) (Heparin Vial(*)) 0 units IV .PER PROTOCOL [facility] Heparin Sodium/Dextrose (Heparin Drip 25,000 Units(*)) 25,000 units in 500 mls @ 20 mls/hr IVPB PER RATE [facility] Ondansetron HCl (Zofran Inj*) 4 mg IV Q6H PRN Polyethylene Glycol/Electrolytes (Miralax*) 17 gm PO DAILY PRN Polyvinyl Alcohol (Polyvinyl Alcohol 1.4% Opth*) 1 drop BOTH EYES Q2H PRN Triamcinolone Acetonide (Triamcinolone 0.5% Oint *) 1 applic TOPICAL BID PRN Warfarin Sodium (Coumadin Tab(*)) 6 mg PO DAILY@1700 [facility] Vital Signs: Temp Pulse Resp BP Pulse Ox 97.6 F 66 14 137/69 97 12/07/17 08:15 12/07/17 08:15 12/07/17 08:15 12/07/17 08:15 12/07/17 08:15 Oxygen Devices in Use Now: None Appearance: Male lying in bed in NAD Eyes: No Scleral Icterus Ears/Nose/Mouth/Throat: Mucous Membranes Moist Neck: Trachea Midline Respiratory: Symmetrical Chest Expansion and Respiratory Effort, Clear to Auscultation Cardiovascular: NL Sounds; No Murmurs; No JVD, No Edema Abdominal: NL Sounds; No Tenderness; No Distention Lymphatic: No Cervical Adenopathy Extremities: No Edema Skin: No Rash or Ulcers Neurological: Alert and Oriented x 3, NL Muscle Strength and Tone Nutrition: Taking PO's Result Diagrams: 12/07/17 05:58 12/06/17 05:45 Additional Lab and Data: . Assess/Plan/Problems-Billing Assessment: Mr Staton is a 42 yo M who has a h/o morbid obesity and HTN who presented to the ER on 11/30/17 with c/o severe SOB and CP and was found to have massive bilateral PEs with RV dysfunction, now s/p lytics. on heparin gtt (overlap 48 hours) bridging to coumadin. - Patient Problems (1) Bilateral pulmonary embolism Comment: - Now asymptomatic. - Unprovoked, but with strong family history. - He is s/p tPA. Evaluated by hematology; likely needs a hypercoagulable work up (he thinks he has a family history of factor V leiden deficiency), but this will be postponed since he is on AC now. - Heme recommended warfarin/heparin overlap, so will continue heparin until INR therapeutic x 48 hours. This is day 6 of warfarin [5,5,5,6,6,6] - INR 2.07 on AM. (2) HTN (hypertension) Comment: - BP acceptable - Amlodipine started this admission (3) DVT prophylaxis Comment: - Heparin drip, bridge to coumadin (4) Full code status Comment: Status and Disposition: Inpatient. Anticipate discharge to home when medically stable.
[2017-12-07] MEDS: amLODIPine TAB* 5 MG PO SCH (08:55)
[2017-12-07] MEDS: Warfarin TAB(*) 6 MG PO SCH (16:40)
[2017-12-08 03:42] LABS: INR 2.4 (0.77-1.02)
[2017-12-08] MEDS: amLODIPine TAB* 5 MG PO SCH (08:52)
--- NOTE | 2017-12-08 12:46 | PN ---
Subjective Date of Service: 12/08/17 Interval History: Patient has no complaints. No SOB with exertion. Able to ambulate around unit without difficulty. No Chest pain. No pain in legs, no other pain, no dizziness on standing. No Diarrhea, abdominal pain, constipation, headache, changes in vision, or other pain. Patient is excited for hopeful discharge tomorrow. Family History: Unchanged from Admission Social History: Unchanged from Admission Past Medical History: Unchanged from Admission Objective Active Medications: Acetaminophen (Tylenol Tab*) 650 mg PO Q6H PRN PRN Reason: FEVER/PAIN Last Admin: 12/02/17 17:15 Dose: 650 mg Amlodipine Besylate (Norvasc Tab*) 5 mg PO DAILY [facility] Last Admin: 12/08/17 08:52 Dose: 5 mg Heparin Sodium (Porcine) (Heparin Vial(*)) 0 units IV .PER PROTOCOL [facility] PRN Reason: Protocol Last Admin: 12/07/17 06:52 Dose: 1,300 units Heparin Sodium/Dextrose (Heparin Drip 25,000 Units(*)) 25,000 units in 500 mls @ 20 mls/hr IVPB PER RATE [facility] PRN Reason: Protocol Last Admin: 12/07/17 22:51 Dose: 20 mls/hr Ondansetron HCl (Zofran Inj*) 4 mg IV Q6H PRN PRN Reason: NAUSEA Polyethylene Glycol/Electrolytes (Miralax*) 17 gm PO DAILY PRN PRN Reason: CONSTIPATION Polyvinyl Alcohol (Polyvinyl Alcohol 1.4% Opth*) 1 drop BOTH EYES Q2H PRN PRN Reason: DRY EYES Triamcinolone Acetonide (Triamcinolone 0.5% Oint *) 1 applic TOPICAL BID PRN PRN Reason: RASH Warfarin Sodium (Coumadin Tab(*)) 6 mg PO DAILY@1700 [facility] PRN Reason: Protocol Last Admin: 12/07/17 16:40 Dose: 6 mg Vital Signs - 8 hr 12/08/17 12/08/17 12/08/17 07:47 08:00 11:11 Temperature 97.8 F Pulse Rate 65 78 Respiratory 16 16 Rate Blood Pressure 132/84 130/67 (mmHg) O2 Sat by Pulse 96 97 Oximetry Oxygen Devices in Use Now: None Appearance: Patient is a 42yo male who appears stated age, is morbidly obese, and is sitting in the bed in NAD. Eyes: No Scleral Icterus, PERRLA Ears/Nose/Mouth/Throat: NL Teeth, Lips, Gums, Clear Oropharnyx, Mucous Membranes Moist Neck: NL Appearance and Movements; NL JVP, Trachea Midline Respiratory: Symmetrical Chest Expansion and Respiratory Effort, Clear to Auscultation Cardiovascular: NL Sounds; No Murmurs; No JVD, RRR, - - 1+ edema in LLE, trace in right. Similar to previous exam. Abdominal: NL Sounds; No Tenderness; No Distention, No Hepatosplenomegaly Lymphatic: No Cervical Adenopathy Extremities: No Clubbing, Cyanosis Skin: No Nodules or Sclerosis, - - Numerous healing bruises. Venous stasis ulcers on LLE. Neurological: Alert and Oriented x 3, NL Sensation, NL Muscle Strength and Tone , - - CN II-XII Result Diagrams: 12/07/17 05:58 12/06/17 05:45 Additional Lab and Data: . Assess/Plan/Problems-Billing Assessment: Mr Staton is a 42 yo M who has a h/o morbid obesity and HTN who presented to the ER on 11/30/17 with c/o severe SOB and CP and was found to have massive bilateral PEs with RV dysfunction, now s/p lytics. on heparin gtt (overlap 48 hours) bridging to coumadin. - Patient Problems (1) Bilateral pulmonary embolism Current Visit: Yes Status: Acute Code(s): I26.99 - OTHER PULMONARY EMBOLISM WITHOUT ACUTE COR PULMONALE SNOMED Code(s): 57266895 Comment: Now asymptomatic. Unprovoked, but with strong family history. He is status post tPA. Evaluated by hematology; likely needs a hypercoagulable work up (he thinks he has a family history of factor V leiden deficiency), but this will be postponed since he is on AC now. - Heme recommended warfarin/heparin overlap, so will continue heparin until INR therapeutic x 48 hours. This is day 7 of warfarin [5,5,5,6,6,6,6] - INR 2.4 on 12/08/17 AM. 48hr overlap will be done in AM of 12/08 if still therapeutic. (2) HTN (hypertension) Current Visit: Yes Status: Acute Code(s): I10 - ESSENTIAL (PRIMARY) HYPERTENSION SNOMED Code(s): 83042874 Comment: BP acceptable Amlodipine started this admission Follow up with new PCP for long-term monitoring. (3) Hematoma Current Visit: Yes Status: Acute Code(s): T14.8XXA - OTHER INJURY OF UNSPECIFIED BODY REGION, INITIAL ENCOUNTER SNOMED Code(s): 058393255 Comment: Improving, H/H stable. (4) Syncope and collapse Current Visit: Yes Status: Acute Code(s): R55 - SYNCOPE AND COLLAPSE SNOMED Code(s): 552603090 Comment: Likely due to PE. (5) DVT prophylaxis Current Visit: Yes Status: Acute Code(s): HOX7783 - SNOMED Code(s): 076944796 Comment: - Heparin drip, bridge to coumadin (6) Full code status Current Visit: Yes Status: Acute Code(s): Z78.9 - OTHER SPECIFIED HEALTH STATUS SNOMED Code(s): 854610689 Comment: Status and Disposition: Inpatient. Anticipate discharge to home tomorrow if INR still therapeutic.
[2017-12-08] MEDS: Warfarin TAB(*) 6 MG PO SCH (17:14)
[2017-12-08] MEDS: Heparin DRIP 25,000 UNITS(*) 25,000 UNITS/500 ML BAG IVPB SCH (18:43)
[2017-12-09 06:18] LABS: ABS Basophils 0.1 10^3/ul (0-0.2); ABS Eosinophils 0.5 10^3/ul (0-0.6); ABS Lymphocytes 2.7 10^3/ul (1.0-4.8); ABS Monocytes 0.8 10^3/ul (0-0.8); ABS Neutrophils 4.5 10^3/ul (1.5-7.7); ABS Nucleated RBC 0 10^3/ul; Eosinophil % 5.9 % (0-6); Hematocrit 47 % (42-52); Hemoglobin 15.6 g/dl (14.0-18.0); Lymphocyte % 31.6 % (25-47); Mean Corpuscular HGB Conc 34 g/dl (31-36); Mean Corpuscular Hemoglobin 30 pg (27-31); Mean Corpuscular Volume 89 fL (80-94); Mean Platelet Volume 8 um3 (7.4-10.4); Nucleated Red Blood Cells % 0; Platelet Count 296 10^3/ul (150-450); Red Blood Count 5.24 10^6/ul (4.0-5.4); Red Cell Distribution Width 14 % (10.5-15); White Blood Count 8.6 10^3/ul (3.5-10.8)
[2017-12-09 06:41] LABS: EGFR Non-African American 91.8 (>60); INR 2.8 (0.77-1.02)
[2017-12-09 08:33] VITALS: BP 130/77
[2017-12-09] MEDS: amLODIPine TAB* 5 MG PO SCH (09:54)
--- NOTE | 2017-12-09 22:58 | DS ---
CC: Dr. Clemens; Dr. Butt * DISCHARGE SUMMARY: DATE OF ADMISSION: 11/30/17 DATE OF DISCHARGE: 12/09/17 PRIMARY CARE PROVIDER: Jesus Clemens MD COMMUNICATIONS EQUIPMENT SUPERVISOR: Virginia Butt MD MY ATTENDING WHILE IN THE HOSPITAL: Dr. Edwin Nunez.* (DICTATED BY DANA CHRISTIANSON) PRIMARY DISCHARGE DIAGNOSES: Pulmonary emboli, large bilateral and hypertension. SECONDARY DISCHARGE DIAGNOSIS: Obesity. STUDIES DONE WHILE IN THE HOSPITAL: Electrocardiogram from 11/30/17 shows sinus tachycardia, ST depression in V4, V5, V6 and I, aVL. T wave inversions V1 , V2, V3, V4 as well as II, III, aVF. Of note, S1, Q3, T3 is present, QTc of 440. Normal axis. No other abnormalities. EKG from 12/01/17 shows normal sinus rhythm. S1, Q3, T3 is still present, but decreased. Improvement in ST depression. Rate of 79. QTc of 466, normal axis, no other abnormalities. Chest x-ray from 11/30/17 read as no active cardiopulmonary disease. Chest thorax CTA from 11/30/17 read as large bilateral pulmonary emboli, right pleural effusion. Transthoracic echocardiogram, 11/30/17, shows mild concentric left ventricular hypertrophy, hyperdynamic left ventricle systolic function, normal wall motion, estimated ejection fraction 60% to 65%, septal flattening. E to A reversal suggestive of diastolic dysfunction, right ventricular global systolic function severely reduced, and RV dilatation is noted. All valves appear structurally normal and trace mitral regurgitation, unable to estimate right ventricular systolic pressure. Venous Doppler studies from 11/30/17 read as limited exam, tibial vessels, no evidence of deep vein thrombosis above the knee. MEDICATIONS AT DISCHARGE: 1. Tylenol 650 mg p.o. q.6 hours as needed. 2. Amlodipine 5 mg p.o. daily. 3. Warfarin 6 mg p.o. daily. New medications at discharge: 1. Tylenol. 2. Amlodipine. 3. Warfarin. Medications discontinued at discharge: None. HOSPITAL COURSE: This is a brief summary of the patient's presentation. For more details, please see the history and physical from this office from . In brief, patient is a 42-year-old male with past medical history significant for hypertension, who presents with sudden onset shortness of breath and chest pressure over the course of 2 days with syncope and extreme shortness of breath. The patient had no provoking factors. The patient came into the emergency department by EMS and was found to have bilateral pulmonary emboli. The patient was placed on a heparin drip, was given tPA in the ICU due to right ventricular strain. The patient improved greatly from that point. The patient was never hemodynamically unstable. The patient was moderately hypoxic requiring 2 L of oxygen which resolved on 12/01/17. The patient's white blood cell count was elevated on admission. The patient's D-dimer was also elevated as well as lactic acid and troponin as well as hemoglobin A1c, elevated cholesterol and glucose. The patient was not fasting for this exam. All these improved over the course of first day admitted into the hospital. The patient was seen on consultation by Dr. Virginia Butt of Hematology, who recommended a repeat hypercoagulability workup in the outpatient setting as the patient when drawn while inpatient was likely not accurate due to active clots and heparin drip. The patient has a family history of unprovoked blood clots in several relatives. The patient was recommended to have at least 48 hours of overlap between his heparin drip and his Coumadin. The patient was found to be hypertensive and started on amlodipine. The patient was found to have large hematomas which were likely due to his fall exacerbated by tPA, these did not grow. The patient never became anemic. The patient had an uneventful hospitalization from 12/01/17 to 12/09/17 as his INR slowly increased. The patient had several doses of 5 mg of warfarin daily which did not result in a significant increase in INR. The patient was then increased to 6. His INR slowly increased until it became 2.07 on 12/07/17. It was 2.8 on the day of discharge at 12/09/17. The patient remained stable time motion analyst, had no signs of active bleeding. The patient was amenable to discharge for followup with Hematology and his new primary care provider. PHYSICAL EXAMINATION ON THE DAY OF DISCHARGE: General: The patient is a 42- year- old male, who appears stated age. He is obese and is sitting comfortably in the bed, in no acute distress. Vital Signs: At the time of discharge, temperature 97.7, pulse rate 63 , respiratory rate 18, oxygen saturation 99% on room air, blood pressure 130/77. HEENT: Head: Normocephalic, atraumatic. Sclerae anicteric. No conjunctival injection. Nasal mucosa moist. Oral mucosa moist. No pharyngeal erythema, discharge, or exudates. Neck: Supple, nontender. No lymphadenopathy. No carotid bruits auscultated. No JVD. Cardiac : Regular rate and rhythm. No clicks, murmurs, gallops, or rubs. Pulses are 2 + in the bilateral dorsalis pedis, posterior tibialis, and radial areas. Venous stasis ulcers on the left lower extremity. No calf tenderness. Respiratory: Clear to auscultation bilaterally. No wheeze, rales, or rhonchi. Good air exchange bilaterally. Abdomen: Soft, nontender, obese. Bowel sounds present and normoactive in all 4 quadrants. No hepatosplenomegaly. No abdominal bruits are auscultated. Skin: Bruises and hematomas scattered over body in various stages of healing. Neuro: Cranial nerves II through XII intact. Normal gait. No focal deficits. Psychiatric: Very pleasant and cooperative. DIAGNOSTIC STUDIES/LAB DATA: Laboratory data on day of discharge, white blood cell count 8.6, hemoglobin 15.6, hematocrit 47, and platelet count 296. INR 2.8. Sodium 132, potassium 3.9, chloride 104, carbon dioxide 21, anion gap 7, BUN 14, creatinine 0.91, glucose 89, calcium 9.5. DISCHARGE PLAN: The patient will be discharged to home. The patient will follow up with his primary care provider for a new patient appointment on at 9 a.m. The patient will follow up with Hematology/Oncology on 12/26/17 at 11:20.am. to have an INR drawn on 12/15/17 at 10 a.m. and have his warfarin adjusted. At that point, the patient should engage in activity as tolerated, have a regular unrestricted diet with consistent intake of vitamin K containing foods which he has been counseled on. The patient should continue taking amlodipine. The patient should return to hospital for chest pain, shortness of breath, or other alarming symptoms. The patient should avoid long-term inactivity. The patient should exercise for the goal of weight loss. The patient should avoid activities in the direct aftermath of his admission that might result in trauma as he is anticoagulated on separate agents at this point. TIME SPENT: Approximately 60 minutes were spent on this discharge, 30 of which was spent [id number] with the patient obtaining history and physical and discussing the treatment plan. DANA CHRISTIANSON [id number]/CPS #: [id number] TEE
[2017-12-12 11:53] LABS: Prothrombin 20210 Mutation Heterozygous (Negative)
== END 2017-12-09 11:30 | disposition home health service (06) | DRG 134 ==
LOC: ED 07:39 → ICU 11:40 → UNDOADMIN 11:56 → MED 12-01 15:36
PROVIDERS: ADMIT Internal Medicine; ATTEND Internal Medicine
DX: I26.99 Other pulmonary embolism without acute cor pulmonale (principal); D68.59 Other primary thrombophilia; I24.8 Other forms of acute ischemic heart disease; J90 Pleural effusion, not elsewhere classified; E66.01 Morbid (severe) obesity due to excess calories; Z68.42 Body mass index [BMI] 45.0-49.9, adult; I10 Essential (primary) hypertension; I34.0 Nonrheumatic mitral (valve) insufficiency; I51.9 Heart disease, unspecified; R09.02 Hypoxemia; E78.9 Disorder of lipoprotein metabolism, unspecified; R74.8 Abnormal levels of other serum enzymes; W18.39XA Other fall on same level, initial encounter; R55 Syncope and collapse; S40.021A Contusion of right upper arm, initial encounter; S20.20XA Contusion of thorax, unspecified, initial encounter; Z80.0 Family history of malignant neoplasm of digestive organs; Z79.01 Long term (current) use of anticoagulants; Z83.2 Family history of diseases of the blood and blood-forming organs and certain disorders involving the immune mechanism; Z80.8 Family history of malignant neoplasm of other organs or systems; Z88.0 Allergy status to penicillin; Y92.008 Other place in unspecified non-institutional (private) residence as the place of occurrence of the external cause; Z82.49 Family history of ischemic heart disease and other diseases of the circulatory system; Z83.3 Family history of diabetes mellitus; Z87.891 Personal history of nicotine dependence; Z72.89 Other problems related to lifestyle; Z88.7 Allergy status to serum and vaccine
CPT/HCPCS: 36415; 71045; 71275; 80048; 80053; 80061; 81240; 81241; 82565; 83036; 83090; 83605; 83735; 83880; 84443; 84484; 84520; 85025; 85027; 85300; 85303; 85306; 85307; 85379; 85610; 85613; 85730; 93005; 93306; 93970; 99223; 99284; A9270-GY; C8929; J1644; J2997; Q9967

== ENCOUNTER 2018-02-04 14:33 | Emergency (ER) | payer BC ==
[2018-02-04 17:21] LABS: ABS Basophils 0.1 10^3/ul (0-0.2); ABS Eosinophils 0.1 10^3/ul (0-0.6); ABS Monocytes 0.6 10^3/ul (0-0.8); ABS Neutrophils 9.6 10^3/ul (1.5-7.7); ABS Nucleated RBC 0 10^3/ul; Eosinophil % 0.7 % (0-6); Hematocrit 48 % (42-52); Hemoglobin 16.1 g/dl (14.0-18.0); Lymphocyte % 16.3 % (25-47); Mean Corpuscular HGB Conc 34 g/dl (31-36); Mean Corpuscular Hemoglobin 29 pg (27-31); Mean Corpuscular Volume 85 fL (80-94); Mean Platelet Volume 7.4 um3 (7.4-10.4); Nucleated Red Blood Cells % 0.3; Platelet Count 307 10^3/ul (150-450); Red Blood Count 5.62 10^6/ul (4.0-5.4); Red Cell Distribution Width 14 % (10.5-15); White Blood Count 12.5 10^3/ul (3.5-10.8)
[2018-02-04 17:31] LABS: INR 2.21 (0.77-1.02)
[2018-02-04 17:45] LABS: EGFR Non-African American 96.7 (>60)
[2018-02-04] MEDS ORDERED: Iohexol 350* (CONTRAST) 500 ML MDV IV ONE (17:56)
--- NOTE | 2018-02-04 19:07 | RAD ---
INDICATION: Shortness of breath. COMPARISON: Comparison is made with prior CT angiogram of the chest from November 30, 2017 and December 26, 2017. TECHNIQUE: A CT angiogram of the chest was performed with intravenous following intravenous injection of 88 ml of Omnipaque 350 nonionic contrast. Contiguous axial sections were obtained from the lung apices through the lung bases. Images were reconstructed in the coronal and sagittal planes. FINDINGS: There is suboptimal opacification of the pulmonary arteries limiting the study. There are faint linear intraluminal filling defects in the distal right main extending into several right lower lobe basilar segmental arteries. There are similar although less prominent findings in a couple of the left a basilar segmental arteries. These findings are unchanged from the prior study and markedly improved from the exam from November 2017 and likely represent chronic pulmonary emboli as noted on the prior study. No new emboli are seen. The heart appears mildly enlarged. No pericardial effusion is present. The thoracic aorta is normal in caliber and demonstrates homogeneous contrast opacification. No significant enlarged mediastinal or hilar lymph nodes are seen. Images of the upper abdomen demonstrate no acute finding. There is fatty infiltration of the liver. The lungs are clear. No pleural effusion is seen. There are are couple mild chronic compression fractures of mid dorsal vertebral bodies which appear unchanged. IMPRESSION: 1. LIMITED STUDY. 2. THERE ARE LINEAR FILLING DEFECTS IN BILATERAL LOWER LOBE BASILAR SEGMENTAL ARTERIES WHICH ARE UNCHANGED FROM THE PRIOR EXAM AND MOST CONSISTENT WITH CHRONIC PULMONARY EMBOLI PREVIOUSLY NOTED. THESE ARE MARKEDLY IMPROVED FROM THE STUDY FROM NOVEMBER 2017. 3. HEPATIC STEATOSIS. 4. MILD CHRONIC COMPRESSION FRACTURES OF MID DORSAL VERTEBRAL BODIES, UNCHANGED.
--- NOTE | 2018-02-04 19:20 | ED ---
Darnell Tyson Elizabeth, scribed for Jose Molina MD on 02/04/18 at 1646 . Shortness of Breath - HPI Summary HPI Summary: This patient is a 42 year old M presenting to [facility] with a chief complaint of shortness of breath that began today. Symptoms aggravated by nothing. Symptoms alleviated by nothing. Patient reports cough, chest tightness, lightheaded, and heart palpitations. 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 Patient currently takes Coumadin. Patient had a recent CT revealing no new PE and a recent ultrasound revealing no DVT. - History of Current Complaint Chief Complaint: EDShortnessOfBreath Time Seen by Provider: 02/04/18 14:58 Hx Obtained From: Patient Onset/Duration: Sudden Onset, Still Present Current Severity: Mild Dyspnea At: Rest Associated Signs & Symptoms: Chest Pain w/Cough - Allergy/Home Medications Allergies/Adverse Reactions: Allergies Allergy/AdvReac Type Severity Reaction Status Date / Time hepatitis B virus vaccine Allergy Hives Verified 11/30/17 07:57 Penicillins Allergy Hives Verified 11/30/17 07:57 Home Medications: Home Medications Warfarin TAB(*) [Coumadin TAB(*)] 3 mg PO QPM 02/04/18 [History Confirmed ] PMH/Surg Hx/FS Hx/Imm Hx Endocrine/Hematology History: Denies: Hx Diabetes, Hx Anemia, Hx Unexplained Bleeding Cardiovascular History: Denies: Hx Aneurysm, Hx Angina, Hx Angioplasty, Hx Auto Implanted Cardiovert Defib, Hx Cardiac Arrest, Hx Cardiomegaly, Hx Congenital Heart Disease, Hx Congestive Heart Failure, Hx Coronary Artery Disease, Hx Deep Vein Thrombosis, Hx Embolism, Hx Hypercholesterolemia, Hx Hypotension, Hx Hypertension, Hx Pacemaker/ICD, Hx Peripheral Vascular Disease, Hx Rheumatic Fever, Hx Syncope, Hx Valvular Heart Disease, Other Cardiovascular Problems/Disorders - Does not seek medical care Respiratory History: Denies: Hx Asthma GI History: Denies: Hx Cirrhosis History: Denies: Hx Renal Disease Sensory History: Reports: Hx Contacts or Glasses Denies: Hx Legally Blind, Hx Deafness, Hx Hearing Aid Opthamlomology History: Reports: Hx Contacts or Glasses Denies: Hx Legally Blind Neurological History: Denies: Hx Dementia, Hx Developmental Delay, Hx Headaches, Hx Migraine, Hx Nerve Disease, Hx Seizures, Hx Spinal Cord Injury, Hx Transient Ischemic Attacks (TIA), Other Neuro Impairments/Disorders - Surgical History Surgery Procedure, Year, and Place: appy. undesended testicle Infectious Disease History: No Infectious Disease History: Denies: Hx Clostridium Difficile, Hx Hepatitis, Hx Human Immunodeficiency Virus (HIV), Hx of Known/Suspected MRSA, Hx Shingles, Hx Tuberculosis, History Other Infectious Disease, Traveled Outside the [place] in Last 30 Days - Family History Known Family History: Positive: Cardiac Disease - Father, Hypertension, Diabetes , Other - Father of brain CA; Aortic Aneurysm - paternal aunt and uncle - Social History Alcohol Use: None Alcohol Amount: couple beers a night Substance Use Type: Reports: None Hx Tobacco Use: Yes - quit in 2007 Smoking Status (MU): Former Smoker Have You Smoked in the Last Year: No Review of Systems Negative: Fever Positive: Palpitations, Chest Pain Positive: Shortness Of Breath, Cough Neurological: Other - POSITIVE LIGHTHEADEDNESS All Other Systems Reviewed And Are Negative: Yes Physical Exam - Summary Physical Exam Summary: Appearance: The patient is well-nourished in no acute distress and in no acute pain. The patient is morbidly obese. Skin: The skin is warm and dry and skin color reflects adequate perfusion. HEENT: The head is normocephalic and atraumatic. The pupils are equal and reactive. The conjunctivae are clear and without drainage. Nares are patent and without drainage. Mouth reveals moist mucous membranes and the throat is without erythema and exudate. The external ears are intact. The ear canals are patent and without drainage. The tympanic membranes are intact. Neck: the neck is supple with full range of motion and non-tender. There are no carotid bruits. There is no neck vein distension. Respiratory: Chest is non-tender. Lungs are clear to auscultation and breath sounds are symmetrical and equal. Cardiovascular: Heart is regular rate and rhythm. There is no murmur or rub auscultated. There is no peripheral edema and pulses are symmetrical and equal. Abdomen: The abdomen is soft and non-tender. There are normal bowel sounds heard in all four quadrants and there is no organomegaly palpated. Musculoskeletal: There is no back tenderness noted. Extremities are non-tender with full range of motion. There is good capillary refill. There is no peripheral edema or calf tenderness elicited. Neurological: Patient is alert and oriented to person, place and time. The patient has symmetrical motor strength in all four extremities. Cranial nerves are grossly intact. Deep tendon reflexes are symmetrical and equal in all four extremities. Psychiatric: The patient has an appropriate affect and does not exhibit any anxiety or depression. Triage Information Reviewed: Yes Vital Signs On Initial Exam: Initial Vitals Temp Pulse Resp BP Pulse Ox 98 F 85 14 158/94 100 02/04/18 14:49 02/04/18 14:49 02/04/18 14:49 02/04/18 14:49 02/04/18 14:49 Vital Signs Reviewed: Yes Diagnostics - Vital Signs Vital Signs Temp Pulse Resp BP Pulse Ox 02/04/18 14:49 98 F 86 11 158/94 100 - Laboratory Lab Results: Lab Results 02/04/18 02/04/18 02/04/18 Range/Units 17:12 17:12 17:12 WBC 12.5 H (3.5-10.8) 10^3/ul RBC 5.62 H (4.0-5.4) 10^6/ul Hgb 16.1 (14.0-18.0) g/dl Hct 48 (42-52) % MCV 85 (80-94) fL MCH 29 (27-31) pg MCHC 34 (31-36) g/dl RDW 14 (10.5-15) % Plt Count 307 (150-450) 10^3/ul MPV 7.4 (7.4-10.4) um3 Neut % (Auto) 76.9 (38-83) % Lymph % (Auto) 16.3 L (25-47) % Jerome % (Auto) 5.2 (0-7) % Eos % (Auto) 0.7 (0-6) % Baso % (Auto) 0.9 (0-2) % Absolute Neuts (auto) 9.6 H (1.5-7.7) 10^3/ul Absolute Lymphs (auto) 2.0 (1.0-4.8) 10^3/ul Absolute Monos (auto) 0.6 (0-0.8) 10^3/ul Absolute Eos (auto) 0.1 (0-0.6) 10^3/ul Absolute Basos (auto) 0.1 (0-0.2) 10^3/ul Absolute Nucleated RBC 0 10^3/ul Nucleated RBC % 0.3 INR (Anticoag Therapy) (0.77-1.02) Sodium 136 L (139-145) mmol/L Potassium 3.5 (3.5-5.0) mmol/L Chloride 101 (101-111) mmol/L Carbon Dioxide 26 (22-32) mmol/L Anion Gap 9 (2-11) mmol/L BUN 10 (6-24) mg/dL Creatinine 0.87 (0.67-1.17) mg/dL Est GFR ( Amer) 124.4 (>60) Est GFR (Non-Af Amer) 96.7 (>60) BUN/Creatinine Ratio 11.5 (8-20) Glucose 108 H (70-100) mg/dL Lactic Acid 1.6 (0.5-2.0) mmol/L Calcium 9.0 (8.6-10.3) mg/dL Total Bilirubin 0.50 (0.2-1.0) mg/dL AST 19 (13-39) U/L ALT 22 (7-52) U/L Alkaline Phosphatase 63 (34-104) U/L Troponin I 0.00 (<0.04) ng/mL C-Reactive Protein 16.86 H (< 5.00) mg/L B-Natriuretic Peptide ( - 100) pg/mL Total Protein 7.8 (6.4-8.9) g/dL Albumin 4.0 (3.2-5.2) g/dL Globulin 3.8 (2-4) g/dL Albumin/Globulin Ratio 1.1 (1-3) 02/04/18 02/04/18 Range/Units 17:12 17:12 WBC (3.5-10.8) 10^3/ul RBC (4.0-5.4) 10^6/ul Hgb (14.0-18.0) g/dl Hct (42-52) % MCV (80-94) fL MCH (27-31) pg MCHC (31-36) g/dl RDW (10.5-15) % Plt Count (150-450) 10^3/ul MPV (7.4-10.4) um3 Neut % (Auto) (38-83) % Lymph % (Auto) (25-47) % Jerome % (Auto) (0-7) % Eos % (Auto) (0-6) % Baso % (Auto) (0-2) % Absolute Neuts (auto) (1.5-7.7) 10^3/ul Absolute Lymphs (auto) (1.0-4.8) 10^3/ul Absolute Monos (auto) (0-0.8) 10^3/ul Absolute Eos (auto) (0-0.6) 10^3/ul Absolute Basos (auto) (0-0.2) 10^3/ul Absolute Nucleated RBC 10^3/ul Nucleated RBC % INR (Anticoag Therapy) 2.21 H (0.77-1.02) Sodium (139-145) mmol/L Potassium (3.5-5.0) mmol/L Chloride (101-111) mmol/L Carbon Dioxide (22-32) mmol/L Anion Gap (2-11) mmol/L BUN (6-24) mg/dL Creatinine (0.67-1.17) mg/dL Est GFR ( Amer) (>60) Est GFR (Non-Af Amer) (>60) BUN/Creatinine Ratio (8-20) Glucose (70-100) mg/dL Lactic Acid (0.5-2.0) mmol/L Calcium (8.6-10.3) mg/dL Total Bilirubin (0.2-1.0) mg/dL AST (13-39) U/L ALT (7-52) U/L Alkaline Phosphatase (34-104) U/L Troponin I (<0.04) ng/mL C-Reactive Protein (< 5.00) mg/L B-Natriuretic Peptide 16 ( - 100) pg/mL Total Protein (6.4-8.9) g/dL Albumin (3.2-5.2) g/dL Globulin (2-4) g/dL Albumin/Globulin Ratio (1-3) Result Diagrams: 02/04/18 17:12 02/04/18 17:12 Lab Statement: Any lab studies that have been ordered have been reviewed, and results considered in the medical decision making process. - EKG 15:30 Cardiac Rate: NL - at 81 BPM EKG Rhythm: Sinus Rhythm EKG Interpretation: NSR Course/Dx - Course Course Of Treatment: Mr. Staton felt SOB and his heart was racing after having a paroxysmal coughing spell. He was concerned that he may have another PE. A CTA was obtained and was negative. He is concerned about his coughing spells and he may need to see Dr. Parks at some point. - Diagnoses Provider Diagnoses: Rapid palpitations, Dyspnea Discharge - Sign-Out/Discharge Documenting (check all that apply): Discharge/Admit/Transfer - Discharge Plan Condition: Stable Disposition: HOME Patient Education Materials: Pulmonary Embolism (DC) Referrals: Jesus Clemens MD [Primary Care Provider] - - Billing Disposition and Condition Condition: STABLE Disposition: HOME The documentation as recorded by the Darnell mann Elizabeth accurately reflects the service I personally performed and the decisions made by me, Jose Molina MD.
[2018-02-04 19:27] VITALS: BP 145/84
== END 2018-02-04 19:26 | disposition home or self-care (01) ==
LOC: ED 14:33
DX: R00.2 Palpitations (principal); R06.00 Dyspnea, unspecified; K76.0 Fatty (change of) liver, not elsewhere classified; Z87.891 Personal history of nicotine dependence; Z88.0 Allergy status to penicillin; Z88.7 Allergy status to serum and vaccine
CPT/HCPCS: 36415; 71275; 80053; 83605; 83880; 84484; 85025; 85610; 86140; 93005; 99283; Q9967

== ENCOUNTER 2019-01-11 11:24 | Emergency (ER) | payer BC ==
[2019-01-11 14:36] VITALS: BP 156/107
--- NOTE | 2019-01-11 14:44 | UC ---
Knee Pain HPI - HPI Summary HPI Summary: 43 y/o male presents to the urgent care c/o left knee pain after adding air to tire was on his knees stood up and has had pain in left knee since - History of Current Complaint Chief Complaint: UCLowerExtremity Stated Complaint: KNEE INJURY Time Seen by Provider: 01/11/19 14:42 Hx Obtained From: Patient Pain Intensity: 7 - Allergies/Home Medications Allergies/Adverse Reactions: Allergies Allergy/AdvReac Type Severity Reaction Status Date / Time hepatitis B virus vaccine Allergy Hives Verified 01/11/19 12:15 Penicillins Allergy Hives Verified 01/11/19 12:15 PMH/Surg Hx/FS Hx/Imm Hx - Surgical History Surgical History: Yes Surgery Procedure, Year, and Place: appy. undesended testicle - Family History Known Family History: Positive: Cardiac Disease - Father, Hypertension, Diabetes , Other - Father of brain CA; Aortic Aneurysm - paternal aunt and uncle - Social History Alcohol Use: Daily Alcohol Amount: couple beers a night Substance Use Type: None Smoking Status (MU): Former Smoker Have You Smoked in the Last Year: No When Did the Patient Quit Smoking/Using Tobacco: 2007 - Immunization History Most Recent Influenza Vaccination: NONE 2016 Most Recent Tetanus Shot: UNKNOWN Most Recent Pneumonia Vaccination: never Physical Exam - Summary Physical Exam Summary: Vital Signs Reviewed: Yes General: well developed, well nourished obese male sitting in the examining table w/o any apparent distress Eyes: Positive: Conjunctiva Clear - PERRLA, EOMI, fundi grossly normal ENT: Positive: Normal ENT inspection, Hearing grossly normal, Pharynx normal, TMs normal Neck: Positive: Supple, Nontender, No Lymphadenopathy Respiratory: Positive: Chest nontender, Lungs clear, Normal breath sounds, No respiratory distress Cardiovascular: Positive: RRR, No Murmur, Pulses Normal, Brisk Capillary Refill Abdomen Description: Positive: Nontender, No Organomegaly, Soft. Negative: CVA Tenderness (R), CVA Tenderness (L) Bowel Sounds: Positive: Present Musculoskeletal: Positive: Strength Intact, No Edema, Other: - Knee: Pt is able to bear weight and ambulate with limping. No surface trauma, soft tissue swelling, or obvious effusion. No overlying erythema or warmth. The L knee is without obvious asymmetry or deformity when compared with the R knee. Decreased ROM of LF knee due to pain. No tenderness to palpation of the patella, no effusion or ballottement. No tenderness over the infrapatellar tendon. Point tenderness over the medial joint line, No tenderness over the medial or lateral tibial plateaus. No tenderness over the proximal fibular head, No tenderness, fullness or mass of the popliteal fossa. No quadriceps tenderness. No laxity of the ACL. PCL, MCL, or LCL. no collateral ligament laxity to valgus or varus stress. Negative Nestor/Drawer sign. Negative Kailash. Distal motor and neurovascular status intact. Neurological Exam: Normal Psychological Exam: Normal Skin Exam: Normal Triage Information Reviewed: Yes Vital Signs: Initial Vital Signs Temp 97.5 F 01/11/19 12:12 Pulse 97 01/11/19 12:12 Resp 18 01/11/19 12:12 BP 169/110 01/11/19 12:12 Pulse Ox 100 01/11/19 12:12 Knee Pain Course/Dx - Differential Dx/Diagnosis Differential Diagnosis/HQI/PQRI: Abrasion, Contusion, Dislocation, Fracture ( Closed), Patellofemoral Syndrome, Sprain, Strain, Tendonitis Provider Diagnosis: Left knee sprain, Uncontrolled hypertension Discharge - Sign-Out/Discharge Documenting (check all that apply): Patient Departure - D/C home All imaging exams completed and their final reports reviewed: Yes - Discharge Plan Condition: Stable Disposition: HOME Patient Education Materials: Knee Sprain (ED) Forms: *Work Release Referrals: Jesus Clemens MD [Primary Care Provider] - 2 Days Moni Aiken MD [Medical Doctor] - 1 Week Additional Instructions: 1-Please take medications as directed to alleviate pain and swelling. 2-Please apply ice, keep your knee immobilized with the splint. Avoid too much weight bearing using the walker. Elevate your knee. 3- Please f/u with Orthopedic Dr Aiken or your PCP in 1 week is not improvement of symptoms for further evaluation and treatment. 4-Your BP is elevated today. Please take your BP medications and decrease salt in your diet, monitor BP and if it continues to be elevated please f/u with your PCP for further management. If you develop chest pain, dizziness, visual disturbances, SOB, or severe ASCENCIO please go immediately to the ER for further management - Billing Disposition and Condition Condition: STABLE Disposition: Home
== END 2019-01-11 15:20 | disposition home or self-care (01) ==
LOC: UCEAST 11:24
DX: S83.92XA Sprain of unspecified site of left knee, initial encounter (principal); X50.1XXA Overexertion from prolonged static or awkward postures, initial encounter; Y92.9 Unspecified place or not applicable; I10 Essential (primary) hypertension; Z88.0 Allergy status to penicillin; Z88.7 Allergy status to serum and vaccine; Z87.891 Personal history of nicotine dependence
CPT/HCPCS: 99212; G0463

== ENCOUNTER 2019-09-22 13:41 | Emergency (ER) | payer BC ==
[2019-09-22 14:22] VITALS: BP 155/85
--- NOTE | 2019-09-22 14:44 | UC ---
Throat Pain/Nasal Javier HPI - HPI Summary HPI Summary: 44-year-old male who states that he's had a sore throat over the past month. He denies any fever or chills. He has no other symptoms. - History of Current Complaint Chief Complaint: UCGeneralIllness Stated Complaint: THROAT COMPLAINT Time Seen by Provider: 09/22/19 14:32 Hx Obtained From: Patient Onset/Duration: Gradual Onset Severity: Mild Pain Intensity: 0 Cough: None Associated Signs & Symptoms: Positive: Negative - Allergies/Home Medications Allergies/Adverse Reactions: Allergies Allergy/AdvReac Type Severity Reaction Status Date / Time hepatitis B virus vaccine Allergy Hives Verified 01/11/19 12:15 Penicillins Allergy Hives Verified 01/11/19 12:15 Home Medications: Home Medications Esomeprazole Magnesium [Nexium 24Hr] 20 mg PO DAILY 09/22/19 [History Confirmed 09/22/19] Warfarin TAB(*) [Coumadin TAB(*)] 6 mg PO DAILY@1700 09/22/19 [History Confirmed 09/22/19] PMH/Surg Hx/FS Hx/Imm Hx Previously Healthy: Yes - Surgical History Surgical History: Yes Surgery Procedure, Year, and Place: appy. undesended testicle - Family History Known Family History: Positive: Cardiac Disease - Father, Hypertension, Diabetes , Other - Father of brain CA; Aortic Aneurysm - paternal aunt and uncle - Social History Alcohol Use: Daily Alcohol Amount: couple beers a night Substance Use Type: None Smoking Status (MU): Former Smoker Have You Smoked in the Last Year: No When Did the Patient Quit Smoking/Using Tobacco: 2007 - Immunization History Most Recent Influenza Vaccination: NONE 2015 Most Recent Tetanus Shot: UNKNOWN Most Recent Pneumonia Vaccination: never Review of Systems All Other Systems Reviewed And Are Negative: Yes ENT: Positive: Sore Throat Is Patient Immunocompromised?: No Physical Exam Triage Information Reviewed: Yes Appearance: Well-Appearing, No Pain Distress, Well-Nourished Vital Signs: Initial Vital Signs Temp 97.6 F 09/22/19 14:18 Pulse 88 09/22/19 14:18 Resp 20 09/22/19 14:18 BP 155/85 09/22/19 14:18 Pulse Ox 98 09/22/19 14:18 Vital Signs Reviewed: Yes Eyes: Positive: Conjunctiva Clear ENT: Positive: Pharyngeal erythema - Minimal pharyngeal erythema, TMs normal, Uvula midline. Negative: Tonsillar swelling, Tonsillar exudate, Trismus, Muffled voice, Hoarse voice Neck: Positive: Supple, Nontender, No Lymphadenopathy Respiratory: Positive: Lungs clear, Normal breath sounds, No respiratory distress, No accessory muscle use Cardiovascular: Positive: RRR, No Murmur, Pulses Normal, Brisk Capillary Refill Musculoskeletal Exam: Normal Neurological Exam: Normal Psychological Exam: Normal Skin Exam: Normal Throat Pain/Nasal Course/Dx - Course Course Of Treatment: Rapid strep test was negative - Differential Dx/Diagnosis Provider Diagnosis: Pharyngitis Discharge ED - Sign-Out/Discharge Documenting (check all that apply): Patient Departure All imaging exams completed and their final reports reviewed: No Studies - Discharge Plan Condition: Good Disposition: HOME Patient Education Materials: Pharyngitis (ED) Referrals: Care [facility] [Outside] No Primary Care Phys,NOPCP [Primary Care Provider] - Additional Instructions: Increase fluids, warm salt water gargles, throat lozenges, Motrin every 8 hours with food for pain. Definite recheck in 4-5 days if no improvement. - Billing Disposition and Condition Condition: GOOD Disposition: Home
== END 2019-09-22 14:47 | disposition home or self-care (01) ==
LOC: UCCORT 13:41
DX: J02.9 Acute pharyngitis, unspecified (principal); Z87.891 Personal history of nicotine dependence; Z79.01 Long term (current) use of anticoagulants; Z88.0 Allergy status to penicillin; Z88.7 Allergy status to serum and vaccine
CPT/HCPCS: 87651; 99211; G0463

== ENCOUNTER 2019-11-06 11:39 | Emergency (ER) | payer BC ==
[2019-11-06 13:08] VITALS: BP 163/107
--- NOTE | 2019-11-06 13:10 | UC ---
Dental HPI - HPI Summary HPI Summary: 44 yo male presents with dental pain. He tells me that last week he broke his right lower tooth. About 3-4 days ago he further broke this tooth. Since yesterday has had increased pain with swelling to his right lower jaw. He called his dentist and has an appt next week. Denies fever. He is eating and tolerating po well. - History of Current Complaint Chief Complaint: UCDentalProblem Stated Complaint: DENTAL ISSUE Time Seen by Provider: 11/06/19 13:09 Hx Obtained From: Patient Onset/Duration: Gradual Onset Severity: Moderate Pain Intensity: 6 Pain Scale Used: 0-10 Numeric - Allergies/Home Medications Allergies/Adverse Reactions: Allergies Allergy/AdvReac Type Severity Reaction Status Date / Time hepatitis B virus vaccine Allergy Hives Verified 11/06/19 13:08 Penicillins Allergy Hives Verified 11/06/19 13:08 PMH/Surg Hx/FS Hx/Imm Hx - Additional Past Medical History Additional PMH: PEs Cardiovascular History: Hypertension - Surgical History Surgical History: Yes Surgery Procedure, Year, and Place: appy. undesended testicle - Family History Known Family History: Positive: Cardiac Disease - Father, Hypertension, Diabetes , Other - Father of brain CA; Aortic Aneurysm - paternal aunt and uncle - Social History Lives: With Family Alcohol Use: Daily Alcohol Amount: 2/day Substance Use Type: None Smoking Status (MU): Former Smoker Have You Smoked in the Last Year: No When Did the Patient Quit Smoking/Using Tobacco: 2008 - Immunization History Most Recent Influenza Vaccination: NONE 2015 Most Recent Tetanus Shot: UNKNOWN Most Recent Pneumonia Vaccination: never Review of Systems All Other Systems Reviewed And Are Negative: No Constitutional: Positive: Negative Skin: Positive: Negative Eyes: Positive: Negative ENT: Positive: Dental Pain Respiratory: Positive: Negative Cardiovascular: Positive: Negative Gastrointestinal: Positive: Negative Neurological: Positive: Negative Psychological: Positive: Negative Physical Exam - Summary Physical Exam Summary: GENERAL: NAD. WDWN. No pain distress. SKIN: No rashes, sores, lesions, or open wounds. HEENT: Head: AT/NC Nose: Nasal mucosa pink and moist. NTTP maxillary and frontal sinus. Throat: Posterior oropharynx without exudates, erythema, or tonsillar enlargement. Uvula midline. NECK: Supple. Nontender. No lymphadenopathy. CHEST: CTAB. No r/r/w. No accessory muscle use. Breathing comfortably and in no distress. CV: RRR. Pulses intact. Cap refill <2seconds NEURO: Alert. PSYCH: Age appropriate behavior. Triage Information Reviewed: Yes Vital Signs: Initial Vital Signs Temp 97.6 F 11/06/19 13:05 Pulse 102 11/06/19 13:05 Resp 20 11/06/19 13:05 BP 163/107 11/06/19 13:05 Pulse Ox 100 11/06/19 13:05 Vital Signs Reviewed: Yes Dental: Positive: Percussion Tenderness @ - Tooth #30, Gross Decay/Caries @ - throughout, Dental Fracture @ - Tooth #30, Cellulitis @ - Tooth #30. Negative: Abscess @, Cervical Lymphadenopathy, Bleeding Dental Complaint Course/Dx - Course Course Of Treatment: Tooth #30 fracture with gum cellulitis. - Differential Dx/Diagnosis Provider Diagnosis: Cellulitis of gingiva Discharge ED - Sign-Out/Discharge Documenting (check all that apply): Patient Departure All imaging exams completed and their final reports reviewed: No Studies - Discharge Plan Condition: Stable Disposition: HOME Prescriptions: clindamycin HCL [Clindamycin HCl] 300 mg PO TID #21 capsule Lidocaine 2% VISCOUS* [Xylocaine 2% Viscous*] 15 ml SWISH SPIT Q4H PRN #200 ml PRN Reason: Pain - Severe Patient Education Materials: Dental Abscess (ED) Forms: *Work Release Referrals: No Primary Care Phys,NOPCP [Primary Care Provider] - Additional Instructions: If you develop a fever, shortness of breath, chest pain, new or worsening symptoms - please call your PCP or go to the ED immediately. Your blood pressure was high at todays visit. Please see your primary provider within 4 weeks for recheck and re-evaluation. Please keep your appointment with your dentist for next week - Billing Disposition and Condition Condition: STABLE Disposition: Home
== END 2019-11-06 13:36 | disposition home or self-care (01) ==
LOC: UCEAST 11:39
DX: K12.2 Cellulitis and abscess of mouth (principal); I10 Essential (primary) hypertension; I26.99 Other pulmonary embolism without acute cor pulmonale; Z88.0 Allergy status to penicillin; Z87.891 Personal history of nicotine dependence
CPT/HCPCS: 99212; G0463

== ENCOUNTER 2019-11-27 07:13 | Emergency (ER) | payer BC ==
[2019-11-27 07:27] VITALS: BP 160/92
--- NOTE | 2019-11-27 08:05 | UC ---
Lower Extremity/Ankle HPI - HPI Summary HPI Summary: right foot pain x 2 days pain is severe 10 out 10 , worse with standing / walking better with rest, ice , Tylenol + injury to his right foot , twisted her foot on his driveway + swelling , no redness, no bruising - History of Current Complaint Chief Complaint: UCLowerExtremity Stated Complaint: R FOOT INJ Time Seen by Provider: 11/27/19 07:33 Hx Obtained From: Patient Onset/Duration: Sudden Onset, Lasting Days - 2, Still Present Severity Initially: Severe Severity Currently: Severe Pain Intensity: 10 Aggravating Factor(s): Standing, Ambulation Alleviating Factor(s): Rest, Elevation, Ice Able to Bear Weight: Yes - Allergies/Home Medications Allergies/Adverse Reactions: Allergies Allergy/AdvReac Type Severity Reaction Status Date / Time hepatitis B virus vaccine Allergy Hives Verified 11/27/19 07:27 Penicillins Allergy Hives Verified 11/27/19 07:27 Home Medications: Home Medications Warfarin TAB(*) [Coumadin TAB(*)] 3 mg PO QPM PRN 02/04/18 [History Confirmed ] Esomeprazole Magnesium [Nexium 24Hr] 20 mg PO DAILY 09/22/19 [History Confirmed 11/06/19] Warfarin TAB(*) [Coumadin TAB(*)] 6 mg PO DAILY@1700 PRN 09/22/19 [History Confirmed 11/27/19] Acetaminophen [Acetaminophen Extra Strength] 500 mg PO ONCE 11/27/19 [History Confirmed 11/27/19] PMH/Surg Hx/FS Hx/Imm Hx - Additional Past Medical History Additional PMH: factor 5 deficiency - Surgical History Surgical History: Yes Surgery Procedure, Year, and Place: appy. undesended testicle - Family History Known Family History: Positive: Cardiac Disease - Father, Hypertension, Diabetes , Other - Father of brain CA; Aortic Aneurysm - paternal aunt and uncle - Social History Alcohol Use: Daily Alcohol Amount: 2/day Substance Use Type: None Smoking Status (MU): Former Smoker Have You Smoked in the Last Year: No When Did the Patient Quit Smoking/Using Tobacco: 2007 - Immunization History Most Recent Influenza Vaccination: NONE 2015 Most Recent Tetanus Shot: UNKNOWN Most Recent Pneumonia Vaccination: never Review of Systems All Other Systems Reviewed And Are Negative: Yes Is Patient Immunocompromised?: No Physical Exam Triage Information Reviewed: Yes Appearance: Pain Distress, Obese Vital Signs: Initial Vital Signs Temp 97.2 F 11/27/19 07:22 Pulse 97 11/27/19 07:22 Resp 18 11/27/19 07:22 BP 160/92 11/27/19 07:22 Pulse Ox 97 11/27/19 07:22 Vital Signs Reviewed: Yes Eyes: Positive: Conjunctiva Clear ENT: Positive: Normal ENT inspection, Hearing grossly normal, Pharynx normal Neck: Positive: Supple, Nontender, No Lymphadenopathy Respiratory: Positive: Chest non-tender, Lungs clear, Normal breath sounds Cardiovascular: Positive: RRR, No Murmur, Pulses Normal Musculoskeletal: Positive: Other: - right foot : + swelling , no erythema, tenderness 5th metatarsal bone, limited ROM due to pain and swelling Diagnostics - Laboratory Lab Results: xray right foot : IMPRESSION: THERE IS A 6 MM BONY FOCUS DISCONTINUOUS WITH THE BASE OF THE RIGHT FIFTH METATARSAL WITH WELL-CORTICATED EDGES MORE CONSISTENT WITH OS VESALIANUM THEN ACUTE AVULSION FRACTURE. If the patient's symptoms persist, follow-up imaging is recommended. Lower Extremity Course/Dx - Differential Dx/Diagnosis Provider Diagnosis: Sprain of right foot Discharge ED - Sign-Out/Discharge Documenting (check all that apply): Patient Departure All imaging exams completed and their final reports reviewed: Yes - Discharge Plan Condition: Stable Disposition: HOME Patient Education Materials: Foot Sprain (ED) Forms: *Work Release Referrals: Carter Rudd MD [Medical Doctor] - 7 Days No Primary Care Phys,NOPCP [Primary Care Provider] - - Billing Disposition and Condition Condition: STABLE Disposition: Home
== END 2019-11-27 08:17 | disposition home or self-care (01) ==
LOC: UCCORT 07:13
DX: S93.691A Other sprain of right foot, initial encounter (principal); D68.51 Activated protein C resistance; Z88.7 Allergy status to serum and vaccine; Z88.0 Allergy status to penicillin; Z79.01 Long term (current) use of anticoagulants; Z87.891 Personal history of nicotine dependence; X50.1XXA Overexertion from prolonged static or awkward postures, initial encounter; Y92.014 Private driveway to single-family (private) house as the place of occurrence of the external cause
CPT/HCPCS: 99211; G0463